=== PATIENT | male | born 1945 | race Caucasian/White ===

== ENCOUNTER 2019-11-20 16:09 | Inpatient (IN) | payer OTHER, MEDICARE, SELFPAY ==
[2019-11-20 16:17] VITALS: BP 154/99; PULSE 85; RESP 14; TEMP 36.2; O2SAT 95; BMI 35.9
--- NOTE | 2019-11-20 16:27 | XRR_ITS ---
PROCEDURE INFORMATION: Exam: XR Left Hand Exam date and time: 11/20/2019 4:28 PM Age: 74 years old Clinical indication: Pain; Finger(s) and hand; Left TECHNIQUE: Imaging protocol: XR Left hand. Views: 3 or more views. COMPARISON: No relevant prior studies available. FINDINGS: Bones/joints: Normal. Soft tissues: Normal. XR/XR hand LT min 3V* [id number] IMPRESSION: No acute findings.
--- NOTE | 2019-11-20 16:54 | PC.NURSE ---
Pt had Vanc at noon today. Informed Dr Montes. Gave report Not to give.
[2019-11-20 16:55] VITALS: BP 161/105; PULSE 77; RESP 20; O2SAT 97
[2019-11-20 17:02] LABS: Basophils % 0.5 %; Eosinophils # 0.1 10^3/uL (0.0-0.8); Hematocrit 42.3 % (42.0-52.0); Hemoglobin 13.9 g/dL (11.7-16.6); Lymphocytes # 1.3 10^3/uL (0.8-4.8); Lymphocytes % 14.7 %; Mean Corpuscular HGB Conc 32.9 g/dL (30.0-36.0); Mean Corpuscular Hemoglobin 27.9 pg (28.0-34.0); Mean Corpuscular Volume 84.8 fL (80-94); Mean Platelet Volume 10.3 fL (7.4-10.4); Monocytes % 11.4 %; Neutrophils # 6.18 10^3/uL (1.8-7.7); Neutrophils % 70.9 %; Nucleated Red Blood Cells % 0 %; Platelet Count 269 10^3/cmm (130-400); Red Blood Count 4.99 10^6/uL (4.1-5.3); Red Cell Distribution Width 13.6 % (12.1-15.1); White Blood Count 8.7 10^3/uL (4.0-10.0)
--- NOTE | 2019-11-20 17:08 | W.ED.GENADLT ---
HPI - General Adult General: Chief complaint: General Medical Stated complaint: infection in left hand Time Seen by Provider: 11/20/19 16:22 Source: patient Mode of arrival: ambulatory Limitations: no limitations History of Present Illness: HPI narrative: 74-year-old male who states he had cellulitis of his left index finger starting 4 days ago. He has been getting IV vancomycin at urgent care over the last 4 days. Patient states it is worsened and he went there today and got his infusion and his cellulitis is now to his forearm. Patient denies any fever he has slight pain. He is full range of motion of his finger. Associated symptoms: Deny chest pain, dyspnea, headache(s), nausea, rash or vomiting Review of Systems Const: Denies: fever(s), chills, body aches or change in appetite Eyes: Denies: blurry vision or eye discomfort ENMT: Denies: throat pain or dental pain Card: Denies: chest pain Resp: Denies: dyspnea GI: Denies: abdominal pain, nausea, vomiting or diarrhea : Denies: dysuria Musc: Denies: neck pain or back pain Skin/Breast: Denies: rash Neuro: Denies: headache(s) Psych: Denies: depression Robert/Lymph: Denies: easy bruising All/Imm: Denies: urticaria Physical Exam Const: COMMON NORMALS: no acute distress, patient oriented x3 and healthy appearing HENMT: COMMON NORMALS: normocephalic and atraumatic HEAD & SCALP: normocephalic and atraumatic Eye: COMMON NORMALS: Equal, round and reactive pupils present and EOMs intact bilaterally PUPIL: Yes Equal, round and reactive pupils present Neck/C-Spine: COMMON NORMALS: full ROM and supple Chest: COMMONS NORMALS: normal inspection of the chest and normal palpation of entire chest wall Resp: COMMON NORMALS: normal respiratory effort, No retractions, No use of accessory muscles and clear to auscultation bilaterally AUSCULTATION: clear to auscultation bilaterally Cardio: COMMON NORMALS: regular rate, regular rhythm and No murmurs present (Cardio) RATE: regular rate RHYTHM: regular rhythm GI: COMMON NORMALS: Normal to inspection, nondistended, normoactive bowel sounds present, Soft to palpation, non-tender and no masses PALPATION: Yes Soft to palpation Extremity: COMMON NORMALS: normal to inspection and full ROM NARRATIVE EXTREMITY EXAM: redness to left index finger going up forearm no tenderness erythema to the palmar aspect of finger Neuro: COMMON NORMALS: patient oriented x3, moves all extremities and no focal motor deficits Psych: COMMON NORMALS: mental status grossly normal, Normal thought process present and cooperative THOUGHT PROCESS: Normal thought process present Skin: COMMON NORMALS: no rashes or lesions noted and no wounds GENERAL SKIN EXAM: no rashes or lesions noted Course Vital Signs: Vital signs: Vital Signs Temperature 97.1 F L 11/20/19 16:17 Pulse Rate 77 11/20/19 16:55 Respiratory Rate 20 H 11/20/19 16:55 Blood Pressure 161/105 11/20/19 16:55 Pulse Oximetry 97 11/20/19 16:55 MDM - General Adult MDM Narrative: Medical decision making narrative: Patient presents with cellulitis to his left index finger that is now went to his forearm. Is worsening even on IV antibiotics. Patient's white count and temperature are normal here. I spoke to hospitalist Dr. Saucedo and will admit for IV antibiotics. Patient has no signs of palmar involvement or flexor tenosynovitis Lab Data: Labs: Lab Results 11/20/19 11/20/19 Range/Units 16:50 16:50 WBC 8.7 (4.0-10.0) 10^3/ uL RBC 4.99 (4.1-5.3) 10^6/u L Hgb 13.9 (11.7-16.6) g/dL Hct 42.3 (42.0-52.0) % MCV 84.8 (80-94) fL MCH 27.9 L (28.0-34.0) pg MCHC 32.9 (30.0-36.0) g/dL RDW 13.6 (12.1-15.1) % Plt Count 269 (130-400) 10^3/c mm MPV 10.3 (7.4-10.4) fL Neut % (Auto) 70.9 % Lymph % (Auto) 14.7 % [place] % (Auto) 11.4 % Eos % (Auto) 1.0 % Baso % (Auto) 0.5 % Neut # (Auto) 6.18 (1.8-7.7) 10^3/u L Lymph # (Auto) 1.3 (0.8-4.8) 10^3/u L [place] # (Auto) 1.0 H (0.2-0.9) 10^3/u L Eos # (Auto) 0.1 (0.0-0.8) 10^3/u L Baso # (Auto) 0.0 (0.0-0.1) 10^3/u L Nucleated RBC % (a uto) 0 % Nucleated RBCs # 0.0 /100WBC Sodium 137 (136-145) mmol/L Potassium 4.3 (3.5-5.1) mmol/L Chloride 101 (98-107) mmol/L Carbon Dioxide 23 (22-29) mmol/L Anion Gap 17.3 (5-19) BUN 12 (8-23) mg/dL Creatinine 0.9 (0.7-1.2) mg/dL GFR Calculation Not Reportable Glucose 112 (65-115) mg/dL Calcium 8.7 (8.5-10.5) mg/dL Total Bilirubin 0.6 (0.15-1.2) mg/dL AST 36 (0-40) U/L ALT 38 (0-41) U/L Alkaline Phosphata se 93 (40-130) IU/L Total Protein 7.3 (6.6-8.7) g/dL Albumin 4.0 (3.5-5.2) g/dL Globulin 3.3 (1.3-4.6) g/dL Imaging Data^: Other Xray: Radiologist's impression: [place] [address] XRay Report Signed Patient: Gregory Ramírez Sr Unit #: [id number] : 1945 Age/Sex: 74 / M ADM Date: 11/20/19 Loc: ER Room/Bed: Attending Dr: Ordering Provider/Ordering MD: Christian Montes MD Date of Service: 11/20/19 Procedure(s): XR hand LT min 3V* [id number] Accession Number(s): [id number] Report Number: [id number] PROCEDURE INFORMATION: Exam: XR Left Hand Exam date and time: 11/20/2019 4:28 PM Age: 74 years old Clinical indication: Pain; Finger(s) and hand; Left TECHNIQUE: Imaging protocol: XR Left hand. Views: 3 or more views. COMPARISON: No relevant prior studies available. FINDINGS: Bones/joints: Normal. Soft tissues: Normal. XR/XR hand LT min 3V* [id number] IMPRESSION: No acute findings. 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
[2019-11-20 17:20] LABS: Alanine Aminotransferase 38 U/L (0-41); Alkaline Phosphatase 93 IU/L (40-130); Anion Gap 17.3 (5-19); Aspartate Amino Transferase 36 U/L (0-40); Blood Urea Nitrogen 12 mg/dL (8-23); Calcium 8.7 mg/dL (8.5-10.5); Carbon Dioxide 23 mmol/L (22-29); Chloride 101 mmol/L (98-107); Globulin 3.3 g/dL (1.3-4.6); Glucose 112 mg/dL (65-115); Osmolality Calculated 281 mOsm/kg (285-295); Potassium 4.3 mmol/L (3.5-5.1); Sodium 137 mmol/L (136-145); Total Bilirubin 0.6 mg/dL (0.15-1.2); Total Protein 7.3 g/dL (6.6-8.7)
--- NOTE | 2019-11-20 18:44 | CTR_ITS ---
PROCEDURE INFORMATION: Exam: CT Left Upper Extremity With Contrast, Forearm Exam date and time: 11/20/2019 9:18 PM Age: 74 years old Clinical indication: Swelling; Arm, lower and fingers and hand and wrist; Left; Patient HX: Cellulitis L forearm - origin thorn index finger 10 days agp; Additional info: Worsening cellulitis TECHNIQUE: Imaging protocol: CT of the Left upper extremity with intravenous contrast was performed. Exam focused on the forearm. Radiation optimization: All CT scans at this facility use at least one of these dose optimization techniques: automated exposure control; mA and/or kV adjustment per patient size (includes targeted exams where dose is matched to clinical indication); or iterative reconstruction. Contrast material: OMNI 300; Contrast volume: 95 ml; Contrast route: INTRAVENOUS (IV); COMPARISON: No relevant prior studies available. RADIATION DOSE METRICS: Total DLP (mGy-cm): 936.54 FINDINGS: Bones/joints: Multi-articular primary osteoarthritic changes including joint space narrowing, subchondral cystic/sclerotic changes, and small marginal osteophyte formations. Soft tissues: There is edema and stranding in the subcutaneous soft tissues at the posterior and ulnar aspect of the elbow , forearm, and wrist. No discrete abscess formation is seen. CT/CT forearm LT w con [id number] IMPRESSION: Findings as stated above are consistent with soft tissue cellulitis at the posterior and ulnar aspects of the elbow, forearm, and wrist. No abscess formation is seen. Radiation Dose CTDIVOL = (mGy): DLP = 936.54 (mGy-cm)
--- NOTE | 2019-11-20 18:44 | CTR_ITS ---
PROCEDURE INFORMATION: Exam: CT Left Upper Extremity With Contrast, Hand Exam date and time: 11/20/2019 9:18 PM Age: 74 years old Clinical indication: Pain; Swelling; Fingers and hand; Left; Finger(s) and hand; Patient HX: Cellulitis L hand - origin thorn index finger 10 days agp; Additional info: Increasing cellulitis x 10 days TECHNIQUE: Imaging protocol: CT of the Left upper extremity with intravenous contrast was performed. Exam focused on the hand. Radiation optimization: All CT scans at this facility use at least one of these dose optimization techniques: automated exposure control; mA and/or kV adjustment per patient size (includes targeted exams where dose is matched to clinical indication); or iterative reconstruction. Contrast material: OMNI 300; Contrast volume: 95 ml; Contrast route: INTRAVENOUS (IV); COMPARISON: CR XR hand LT min 3V* [id number] 11/14/2019 5:21 PM RADIATION DOSE METRICS: Total DLP (mGy-cm): 237.49 FINDINGS: Bones/joints: Multi-articular primary osteoarthritic changes including joint space narrowing, subchondral cystic/sclerotic changes, and marginal osteophyte formations. Soft tissues: There is edema and stranding in the subcutaneous soft tissues at the posterior and ulnar aspects of the distal forearm and wrist. There is edema and stranding in the subcutaneous soft tissues surrounding the hand. No discrete abscess formation is seen. CT/CT hand LT w con [id number] IMPRESSION: Findings as stated above are consistent with soft tissue cellulitis. No discrete abscess formation is seen. Radiation Dose CTDIVOL = (mGy): DLP = 237.49 (mGy-cm)
--- NOTE | 2019-11-20 18:52 | PM.HP ---
Providers/Chief Complaint Admitting Physician: Debbie Saucedo MD Primary Care Provider: Barrett Rodriguez MD Chief Complaint: infection in left hand History of Present Illness Gregory Ramírez Sr is a 74 year old male without significant comorbidities p/w owrsening cellulitis of the left hand. States symptoms first started about 10 days ago when he injured the tip of his left index finger with a thorn. Soon after there was swelling, erythema and he was started on rx with po augmentin and po clindamycin for one week which did not resolve his symptoms. The swelling was not extending towards his forearm and he had a PICC line placed into the R arm by his PCP Dr. Rodriguez, who then prescribed him iv vancomycin via the urgent care. This did not resolve his symptoms either and he was referred to the ER for further management. Reportedly cx was drawn one week ago at the office, which was negative for any bacterial growth. It is not available for review at this time. There is no longer any discharge from this morning. X-rays were taken at the time of onset of symptoms and today which did not show any evidence of underlying osteomyelitis or retained foreign bodies. Denies any complaints of fever. Review of Systems General: Reports: 10 or more systems reviewed and unremarkable except in HPI and below Const: Denies: fever(s), chills or body aches Eyes: Denies: change in vision, blurry vision or photophobia ENMT: Reports: hoarseness; Denies: throat pain, enlarged tonsils, odynophagia or nasal congestion Card: Denies: chest pain, palpitations, irregular heart rhythm, edema, swelling of feet/ankles, lightheadedness, pre-syncope, dyspnea on exertion or orthopnea Resp: Denies: dyspnea, productive cough, non-productive cough, wheezing, stridor, pain on inspiration, change in phlegm color, hemoptysis or chest congestion GI: Denies: abdominal pain, nausea, vomiting, hematemesis, coffee ground emesis, dysphagia, heartburn, diarrhea, constipation, GI cramping, change in stool character, hematochezia or melena : Denies: flank pain, dysuria, urinary frequency, urinary urgency, urinary hesitancy or hematuria Musc: Denies: neck pain, back pain, extremity pain, joint swelling, joint warmth or deformity Neuro: Denies: headache(s), numbness in extremities, weakness in extremities, sensory changes, difficulty walking, frequent falls, dizziness, vertigo, behavioral changes, Slurred speech present or seizure-like activity Psych: Denies: anxiety, depression, suicidal ideation or homicidal ideation Endo: Denies: polyuria, polydipsia, tired all the time, cold intolerance or hot flashes Robert/Lymph: Denies: easy bruising or easy bleeding Medications/Allergies Home Medications Medication Instructions Recorded Confirmed Last Taken Type metoprolol succinate 50 mg PO DAILY 11/19/19 11/20/19 11/20/19 History aspirin [Aspir-81] 81 mg PO PRN 11/20/19 11/20/19 11/19/19 History brimonidine [Alphagan P] 1 drp OPHTHALMIC (EYE) BID 11/20/19 11/20/19 11/20/19 History latanoprost 1 drp OPHTHALMIC (EYE) BEDTIME 11/20/19 11/20/19 11/19/19 History vancomycin See Rx Instructions .ROUTE .COMPLEX 11/20/19 11/20/19 11/20/19 12:00 History Allergies Allergy/AdvReac Type Severity Reaction Status Date / Time No Known Allergies Allergy Verified 11/20/19 17:11 PFSH Acute PFSH: Medical History (Updated 11/20/19 @ 18:57 by Debbie Saucedo MD) HTN (hypertension) Surgical History (Updated 11/20/19 @ 18:57 by Debbie Saucedo MD) History of knee surgery Vitals/I&O/Wt Last Vital Signs Temp 97.1 F L 11/20/19 16:17 Pulse 77 11/20/19 16:55 Resp 20 H 11/20/19 16:55 BP 161/105 11/20/19 16:55 Pulse Ox 97 11/20/19 16:55 Weight last 48 hrs Weight 120.202 kg Physical Exam Narrative: EXAM NARRATIVE: GEN: Awake, alert and oriented, no acute distress CVS: S1S2 N RS: CTA B/L Abd: Soft, nt/nd , bs+ 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 No significant tenderness. The left index finger at the junction of nail and skin, noted some excoriation and overlying scarring, however no overt discharge is noted. Cellulitic changes are extending up into the forearm up to the level of midforearm at this present time. Data : 11/20/19 16:50 11/20/19 16:50 Micro: Microbiology 11/20/19 16:52 Blood Culture - Preliminary Blood SPECIMEN COLLECTED 11/20/19 16:50 Blood Culture - Preliminary Blood SPECIMEN COLLECTED A&P Assessment and plan (1) Cellulitis: Status: Acute Qualifiers: Laterality: left Site of cellulitis: extremity Site of cellulitis of extremity: finger Qualified Code(s): L03.012 - Cellulitis of left finger Additional A&P Information Admit to [facility]. Patient does have evidence of what appears to have started off as a paronychia and then infection of the finger quickly extending into the hand and then up into the forearm. He has been on treatment with outpatient antibiotics with oral Augmentin clindamycin for about 1 week and then most recently with IV vancomycin which is failed to relieve his symptoms. Changes seem to be progressive. For now we will admit him for inpatient IV antibiotics given the critical location of the infection in his hand. Start him on IV Zosyn, this will provide additional pseudomonal another gram-negative coverage over and above the oral regimen that he is received so far. Continue vancomycin for gram-positive coverage including MRSA. There is no history of animal bites or other animal exposure as such over this area. Less likely to be Bartonella. Given that initially symptoms started after a thorn prick and working in the garden possibility of fungal etiology cannot be excluded at this time. Possibilities also include atypical infection such as mycobacteria. Plan to start him on a broader spectrum of IV antibiotic coverage first, monitor for improvement prior to starting any empiric antifungals at this time. CT of the left upper extremity and hand to evaluate for extent of infection including the depth. If any pus pockets are seen, may potentially require drainage and we will be able to obtain some culture material as well. Check Duplex venous of the upper extremity to look for possibility of underlying DVT or septic thrombophlebitis. Obtain records of cultures taken at Dr. Rodriguez's office a week ago. gentle iv hydration with fluids prior to contrast study of the hand Full code Attestations Medical Necessity Statement*: worsening hand and forearm cellulitis, failed outpatient oral and iv abx therapy, needs iv treatment. 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
[2019-11-20 18:55] VITALS: BP 142/107; PULSE 74; RESP 18; TEMP 37; O2SAT 95
--- NOTE | 2019-11-20 19:04 | PC.PHAR ---
Vancomycin is dosed at 2000mg IVPB every 12 hours to produce a predicted trough level of 18.36 (population based pharmacokinetic analysis). A trough level has been ordered from the lab to be obtained before the fourth dose to confirm and adjust if needed. The Zosyn is dosed at 3.375gm IVPB every 8 hours on basis of creatinine clearance of 97.8, each dose to be infused over 4 hours per extended infusion protocol.
[2019-11-20 20:00] VITALS: BP 152/95; PULSE 71; RESP 20; TEMP 37.1; O2SAT 97
[2019-11-20] MEDS: sodium chloride 0.9% 1,000 ML 50 ML IV (20:08)
[2019-11-20] MEDS: iohexol 300 mg/mL 100 mL Btl IV (21:46)
[2019-11-20 22:24] LABS: Estmated Average Glucose 105; Hemoglobin A1C 5.3 % (4.0-6.0)
[2019-11-21] VITALS: BP 148/89; PULSE 67; RESP 18; TEMP 36.7; O2SAT 96
[2019-11-21] MEDS: piperacillin-tazobactam 3.375 GM in sodium chloride 0.9% (plus) 50 ML IV ×2 (03:07→09:04)
[2019-11-21 04:00] VITALS: BP 155/92; PULSE 73; RESP 18; TEMP 37.1; O2SAT 95
[2019-11-21 05:55] LABS: Basophils % 0.4 %; Eosinophils # 0.1 10^3/uL (0.0-0.8); Eosinophils % 1.3 %; Hemoglobin 13.7 g/dL (11.7-16.6); Lymphocytes # 0.9 10^3/uL (0.8-4.8); Lymphocytes % 10.7 %; Mean Corpuscular HGB Conc 32.6 g/dL (30.0-36.0); Mean Corpuscular Hemoglobin 28.4 pg (28.0-34.0); Mean Platelet Volume 11.3 fL (7.4-10.4); Monocytes # 0.9 10^3/uL (0.2-0.9); Monocytes % 10.9 %; Neutrophils # 6.02 10^3/uL (1.8-7.7); Neutrophils % 75.6 %; Nucleated Red Blood Cells % 0 %; Platelet Count 238 10^3/cmm (130-400); Red Blood Count 4.83 10^6/uL (4.1-5.3); Red Cell Distribution Width 13.8 % (12.1-15.1)
[2019-11-21 08:00] VITALS: BP 144/90; PULSE 92; RESP 18; TEMP 37; O2SAT 97
[2019-11-21] MEDS: metoprolol succinate ER (24 HR) 50 mg Tablet PO (09:04)
[2019-11-21 10:19] LABS: Alanine Aminotransferase 45 U/L (0-41); Alkaline Phosphatase 98 IU/L (40-130); Anion Gap 12.4 (5-19); Aspartate Amino Transferase 35 U/L (0-40); Blood Urea Nitrogen 11 mg/dL (8-23); Calcium 8.6 mg/dL (8.5-10.5); Carbon Dioxide 27 mmol/L (22-29); Chloride 103 mmol/L (98-107); Globulin 3.3 g/dL (1.3-4.6); Glucose 129 mg/dL (65-115); Osmolality Calculated 284 mOsm/kg (285-295); Potassium 4.4 mmol/L (3.5-5.1); Sodium 138 mmol/L (136-145); Total Bilirubin 0.8 mg/dL (0.15-1.2); Total Protein 7.3 g/dL (6.6-8.7)
--- NOTE | 2019-11-21 10:37 | PC.CHAP ---
Pastoral Care Encounter/Spiritual Assessment Type of Contact [] Declined allergist/immunologist visit [] Patient/Family/Request visit [] Outpatient visit [] Follow-up visit [] Physician referral [] Code/Alert [x] Routine visit [] Staff referral [] Actively dying [] Patient sleeping [] Family support [] [] Out of room [] Palliative care [] [] Receiving care in room [] Pre-surgical visit [] Trauma [] Long length of stay [] ICU visit [] Other: Relational/Emotional Strength [] Patient feels connected with others/family/visitors/staff [] Distress [] Loneliness/isolation [] Abandonment Spirituality of Patient [] Person of Marguerite [] Attends Judaism of their Marguerite [] Believes in Prayer [] Reads Bible or Gnosticist materials [] There are Spiritual issues to be addressed Set Up And Lay Out Inspector Interventions [x] Prayer [x] Active listening [x] Non-anxious presence [x] Spiritual/emotional support [] Crisis/trauma care [] Spiritual counseling [] Bereavement support [] Provided bereavement packet [] Provided Bible/devotional materials [] Provided toy/stuffed animal, coloring book to patient or family member [] Provided Communion [] Anointing/[place] [] Salvation [x] Completed spiritual assessment [] Other: Impact on Illness or Injury [] Angry [] Fearful [] Anxious [] Often cries [] Exhaustion [] Unable to work [] Unable to attend muslim [] Unable to walk/stand [] Unable to read [] Unable to drive [] Unable to eat/drink [] Unable to sleep [] Unable to be with family [] Patient intubated [] Other: Summary Patient states issues is being taken care of... feeling much better Time spent with patient 10 min
[2019-11-21 11:50] VITALS: BP 140/86; PULSE 89; RESP 18; TEMP 36.9; O2SAT 97
--- NOTE | 2019-11-21 12:36 | P.PN_ITS ---
Subjective Subjective: Interval history: He was really wanting to go home. He reports his hand is about the same. Still with swelling up to about mid left forearm. Reports that thing started with a thorn in his dorsal distal left index finger. Does not have significant pain in the extremity. No reported loss of sensation. No purulent drainage from index finger lesion. Vitals/I&O/Wt Last Vital Signs Temp 98.4 F 11/21/19 11:50 Pulse 89 11/21/19 11:50 Resp 18 11/21/19 11:50 BP 140/86 11/21/19 11:50 Pulse Ox 97 11/21/19 11:50 11/20/19 11/21/19 11/21/19 22:59 06:59 14:59 Intake Total 500 / 500 530 / 530 Output Total 800 / 800 Balance -300 / -300 530 / 530 Weight last 48 hrs Weight 120.202 kg Physical Exam Const: COMMON NORMALS: no acute distress and patient oriented x3 GENERAL A PPEARANCE: anxious HENMT: COMMON NORMALS: oropharynx normal Neck/C-Spine: COMMON NORMALS: no JVD Resp: COMMON NORMALS: normal respiratory effort and clear to auscultation bilaterally AUSCULTATION: clear to auscultation bilaterally Cardio: COMMON NORMALS: no JVD, regular rhythm, S1 normal heart sound present, S2 normal heart sound present and No murmurs present (Cardio) RHYTHM: regular rhythm HEART SOUNDS: S1 normal heart sound present and S2 normal heart sound present GI: COMMON NORMALS: Normal to inspection, nondistended, normoactive bowel sounds present, Soft to palpation and non-tender PALPATION: Yes Soft to palpation Extremity: COMMON NORMALS: no joint enlargement and no pedal edema OTHER: Left hand and forearm (about prison) swelling. Were swelling of the left index finger, especially dorsal aspect, with about 2 cm raised/swollen area at the distal index finger, just proximal to nail bed, with a small area of excoriation, without any purulent discharge. No foreign body can be visualized. Neuro: COMMON NORMALS: patient oriented x3 and moves all extremities Skin: COMMON NORMALS: no rashes or lesions noted GENERAL SKIN EXAM: no rashes or lesions noted Data : 11/21/19 04:47 11/21/19 09:48 Micro: Microbiology 11/20/19 16:52 Blood Culture - Preliminary Blood SPECIMEN COLLECTED 11/20/19 16:50 Blood Culture - Preliminary Blood SPECIMEN COLLECTED A&P Assessment and plan (1) Cellulitis: There is no significant discoloration/erythema of the left arm. There is mild pinkish discoloration, there is some persistent swelling up to about mid forearm. He does say that this is somewhat better. Discussed with him concerned that there has been very slow improvement despite even IV antibiotic administration as an outpatient. He is agreeable to stay for additional reevaluation. We discussed concerns if he does need close follow-up at this time and is not yet ready for discharge. Discussed with him additional monitoring with current antibiotics with vancomycin and Zosyn, and if lack of sufficient improvement, may need to consider additional conditions that may lead to his symptoms. Venous duplex to exclude VTE is also still pending. Blood culture so far unrevealing here. Reported outpatient culture was without growth. CT hand and forearm with soft tissue cellulitis, without abscess or collection. There is no purulent drainage from his index finger which is somewhat more swollen than other digits, with excoriation just proximal to nailbed origin. He is wanting to go home but understands the need for broader antibiotic treatment at this time and close reevaluation due to risks of progression of infection, possible deeper tissue infection, other complications that may lead to risk of disability or . He has received a week of treatment with Augmentin, clindamycin. Currently has been receiving IV infusions with vancomycin via right arm PICC line. Says has had 3 more infusions remaining. Status: Acute Qualifiers: Laterality: left Site of cellulitis: extremity Site of cellulitis of extremity: finger Qualified Code(s): L03.012 - Cellulitis of left finger Attestations Medical Necessity Statement*: Continue admission for assessment management of persistent cellulitis of soft tissue of the left hand despite outpatient treatment, including IV vancomycin. 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
[2019-11-21 12:48] LABS: Vancomycin Trough 11.3 ug/mL (10-15)
[2019-11-21 16:00] VITALS: BP 159/81; PULSE 87; RESP 18; TEMP 37.8; O2SAT 96
[2019-11-21] MEDS: acetaminophen 325 mg Tablet 650 MG PO (16:06)
--- NOTE | 2019-11-21 17:35 | PC.NURSE ---
Ribbon Winder rounded on pt and due to pt only having 100ml output per Dr request typewriter assembly and parts inspector bladder scanned pt only had 50ml typewriter assembly and parts inspector explained to pt that its important that we monitor pt output closely due to some medication that pt was taking pt stated that he felt like he could urinate so typewriter assembly and parts inspector left room and then VISION SPECIALIST came and told typewriter assembly and parts inspector that pt was leaving AMA typewriter assembly and parts inspector spoke with pt and he stated I cant stay here another minute I am going to go home and drink lots of water and get into see my family tomorrow. Ribbon Winder explained the importance of pt staying in the hospital due to the not feeling its safe letting him go home and the importance of watching for signs and symptoms of sepsis and compartment syndrome.
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
--- NOTE | 2019-11-21 18:44 | USCV_ITS ---
Gregory Ramírez Sr Age: 74 Gender: M : 1945 Exam Date: 11/21/2019 06:55 Ordering Phys: Debbie Saucedo MD Technologist: Lizabeth Whittington Exam Location: [facility] [place]_ Indication: SWELLING HISTORY: Upper extremity swelling. PROCEDURES: Venous duplex imaging was performed in only the left upper extremity. The following venous structures were evaluated: internal jugular vein, subclavian vein, axillary vein, and brachial veins. In addition, the basilic vein, cephalic vein, radial vein, and ulnar vein. Serial compression, augmentation maneuvers, and spectral Doppler flow evaluation were performed. FINDINGS: Normal 2-D, color Doppler and phasicity noted in the left upper extremity venous system extending from the left internal jugular vein through the main forearm. No thrombosis or occlusion noted. CONCLUSIONS No evidence of thrombus of the left upper extremity veins. Tang Jones MD (Electronically Signed) Final Date: 21 November 2019 12:59 S
== END 2019-11-21 19:00 | disposition left against medical advice (07) | DRG 603 ==
LOC: ER 18:19 → MEDSURG 18:27
PROVIDERS: Emergency Medicine; Admitting Provider Student in an Organized Health Care Education/Training Program; PCP Family Medicine; Visit Provider Internal Medicine
DX: L03.012 Cellulitis of left finger (principal); L03.114 Cellulitis of left upper limb; Z53.29 Procedure and treatment not carried out because of patient's decision for other reasons; I10 Essential (primary) hypertension; Z79.82 Long term (current) use of aspirin
CPT/HCPCS: 12345; 36415; 36592; 73130; 73201; 80053; 80202; 83036; 85025; 87040; 93971; 99281; J2543; J3370; J7030; J7040; Q9967

== ENCOUNTER 2019-11-24 11:35 | Outpatient (RCR) | payer OTHER, SELFPAY ==
--- NOTE | 2019-11-18 12:41 | XR_ITS ---
WS: [id number] PORTABLE CHEST HISTORY: PICC LINE COMPARISON: 04/28/2018 Interval placement of a RIGHT PICC line with tip in the distal SVC. Increased soft tissue in the RIGHT paratracheal region similar to the prior study. Otherwise lungs ar e clear. No pleural effusion or pneumothorax. Cardiac size: Normal. Mediastinum/Aorta: Normal mediastinum. No osseous abnormality seen. XR/XR chest 1V portable [id number] IMPRESSION: Satisfactory position RIGHT PICC line.
[2019-11-18] MEDS: vancomycin 1,000 MG in sodium chloride 0.9% 250 ML 250 MG IV (13:04)
[2019-11-19] MEDS: vancomycin 1,000 MG in sodium chloride 0.9% 250 ML 250 MG IV (12:05)
[2019-11-19 12:07] VITALS: BMI 35.9
[2019-11-19 12:16] VITALS: BP 159/106; PULSE 96; RESP 18; TEMP 36.1; O2SAT 98
[2019-11-20 11:50] VITALS: BP 155/100; PULSE 89; RESP 16; TEMP 36.3; O2SAT 97
[2019-11-20] MEDS: vancomycin 1,000 MG in sodium chloride 0.9% 250 ML 250 MG IV (12:00)
[2019-11-22 12:49] VITALS: BP 169/107; PULSE 85; RESP 18; TEMP 36.4; O2SAT 99
[2019-11-22] MEDS: vancomycin 1,000 MG in sodium chloride 0.9% 250 ML 250 MG IV (13:04)
[2019-11-23] MEDS: vancomycin 1,000 MG in sodium chloride 0.9% 250 ML 250 MG IV (12:00)
[2019-11-23 12:15] VITALS: BP 174/98; PULSE 79; RESP 20; TEMP 36.4; O2SAT 97
[2019-11-24 11:56] VITALS: BP 200/100; PULSE 76; RESP 18; TEMP 36.3; O2SAT 98
[2019-11-24] MEDS: vancomycin 1,000 MG in sodium chloride 0.9% 250 ML 250 MG IV (11:58)
== END 2019-12-12 23:59 | disposition home or self-care (01) ==
LOC: OPS 11:35
PROVIDERS: PCP Family Medicine; Visit Provider Family Medicine
DX: L03.012 Cellulitis of left finger (principal); Z79.2 Long term (current) use of antibiotics
CPT/HCPCS: 36569; 71045; 96365; 96366; J3370; J7050

== ENCOUNTER 2020-01-26 09:24 | Outpatient (CLI) | payer OTHER, SELFPAY | END 2020-01-26 09:25 | disposition home or self-care (01) | LOC: WOUND 09:25 | PROVIDERS: PCP Family Medicine; Visit Provider Nurse Practitioner Family | DX: L98.9 Disorder of the skin and subcutaneous tissue, unspecified (principal) | CPT/HCPCS: 99212 ==

== ENCOUNTER 2020-01-26 10:30 | Outpatient (CLI) | payer OTHER, SELFPAY ==
--- NOTE | 2020-01-26 10:42 | XR_ITS ---
WS: [id number] Left hand, 2 views, 01/26/2020 Clinical Data: TRAUMA L POINTER FINGER/REDNESS Comparison: Left hand, 11/20/2019. Findings: No fractures or dislocations are seen. The soft tissues are unremarkable. The joint spaces are normal No bone destruction or erosion is seen. There is a slight flexion deformity of the left fifth finger at the PIP joint. XR/XR hand LT 2V [id number] Impression: Negative for fracture, dislocation or bone erosion or destruction.
[2020-01-26 11:11] LABS: Basophils % 0.4 %; Eosinophils # 0.1 10^3/uL (0.0-0.8); Hematocrit 44.6 % (42.0-52.0); Hemoglobin 14.3 g/dL (11.7-16.6); Lymphocytes # 1.1 10^3/uL (0.8-4.8); Lymphocytes % 14.6 %; Mean Corpuscular HGB Conc 32.1 g/dL (30.0-36.0); Mean Corpuscular Hemoglobin 28.2 pg (28.0-34.0); Mean Platelet Volume 10.9 fL (7.4-10.4); Monocytes # 0.6 10^3/uL (0.2-0.9); Monocytes % 7.7 %; Neutrophils # 5.86 10^3/uL (1.8-7.7); Nucleated Red Blood Cells % 0 %; Platelet Count 262 10^3/cmm (130-400); Red Blood Count 5.07 10^6/uL (4.1-5.3); Red Cell Distribution Width 15.8 % (12.1-15.1); White Blood Count 7.8 10^3/uL (4.0-10.0)
[2020-01-26 11:55] LABS: C Reactive Protein 2.8 mg/L (0.0-4.9)
== END 2020-01-26 10:31 | disposition home or self-care (01) ==
LOC: RAD 10:37
PROVIDERS: PCP Family Medicine; Visit Provider Nurse Practitioner Family
DX: L53.9 Erythematous condition, unspecified (principal); S69.92XA Unspecified injury of left wrist, hand and finger(s), initial encounter; X58.XXXA Exposure to other specified factors, initial encounter
CPT/HCPCS: 36415; 73120; 85025; 86140

== ENCOUNTER 2020-01-31 11:41 | Outpatient (RCR) | payer OTHER, SELFPAY | END 2020-02-11 23:59 | disposition home or self-care (01) | LOC: SOT 11:41 | PROVIDERS: PCP Family Medicine; Referring Provider Thoracic Surgery (Cardiothoracic Vascular Surgery); Visit Provider Thoracic Surgery (Cardiothoracic Vascular Surgery) | DX: Z51.89 Encounter for other specified aftercare (principal) | CPT/HCPCS: 97110; 97165 ==

== ENCOUNTER 2020-02-12 06:00 | Outpatient (RCR) | payer OTHER, SELFPAY | END 2020-02-20 23:00 | disposition home or self-care (01) | LOC: SOT 06:00 | PROVIDERS: PCP Family Medicine; Referring Provider Thoracic Surgery (Cardiothoracic Vascular Surgery); Visit Provider Thoracic Surgery (Cardiothoracic Vascular Surgery) | DX: Z51.89 Encounter for other specified aftercare (principal) | CPT/HCPCS: 97110 ==

== ENCOUNTER 2020-02-20 13:26 | Outpatient (CLI) | payer OTHER, SELFPAY | END 2020-02-20 13:27 | disposition home or self-care (01) | LOC: WOUND 13:27 | PROVIDERS: PCP Family Medicine; Visit Provider Thoracic Surgery (Cardiothoracic Vascular Surgery) | DX: Z09 Encounter for follow-up examination after completed treatment for conditions other than malignant neoplasm (principal) | CPT/HCPCS: 99211 ==

== ENCOUNTER 2020-11-10 08:50 | Emergency (ER) | payer OTHER, SELFPAY ==
[2020-11-10 09:03] VITALS: BP 150/105; PULSE 95; RESP 18; TEMP 36.9; O2SAT 97; BMI 33.9
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
[2020-11-10 10:00] VITALS: RESP 18; TEMP 36.9; O2SAT 97
== END 2020-11-10 10:01 | disposition home or self-care (01) ==
PROVIDERS: Emergency Provider Physician Assistant; PCP Family Medicine
DX: T25.522A Corrosion of first degree of left foot, initial encounter (principal); I10 Essential (primary) hypertension
CPT/HCPCS: 99282

== ENCOUNTER → 2022-01-09 10:14 | Outpatient (BNVA) | payer OTHER, SELFPAY | PROVIDERS: PCP Family Medicine; Visit Provider Family Medicine | DX: Z00.00 Encounter for general adult medical examination without abnormal findings (principal); M10.9 Gout, unspecified; Z13.6 Encounter for screening for cardiovascular disorders | CPT/HCPCS: 80053; 80061; 84550; 85025 ==

== ENCOUNTER → 2022-08-29 09:49 | Outpatient (BNVA) | payer OTHER, SELFPAY | PROVIDERS: PCP Clinical Nurse Specialist Adult Health; Visit Provider Family Medicine | DX: M19.90 Unspecified osteoarthritis, unspecified site (principal); M10.9 Gout, unspecified; L03.90 Cellulitis, unspecified | CPT/HCPCS: 84550; 85025; 85651; 86141 ==

== ENCOUNTER → 2022-09-04 08:32 | Outpatient (BNVA) | payer OTHER, SELFPAY | PROVIDERS: PCP Clinical Nurse Specialist Adult Health; Visit Provider Family Medicine | DX: M19.90 Unspecified osteoarthritis, unspecified site (principal); M10.9 Gout, unspecified | CPT/HCPCS: 81000; 84550 ==

== ENCOUNTER → 2022-11-25 08:24 | Outpatient (BNVA) | payer OTHER, SELFPAY | PROVIDERS: PCP Family Medicine; Visit Provider Nurse Practitioner Family | DX: R05.8 Other specified cough (principal) | CPT/HCPCS: 71046 ==

== ENCOUNTER → 2022-11-28 10:15 | Outpatient (BNVA) | payer OTHER, SELFPAY | PROVIDERS: PCP Family Medicine; Visit Provider Family Medicine | DX: M19.90 Unspecified osteoarthritis, unspecified site (principal) | CPT/HCPCS: 84550 ==

== ENCOUNTER 2023-01-01 09:02 | Outpatient (CLI) | payer OTHER, SELFPAY ==
--- NOTE | 2023-01-01 09:15 | CT_ITS ---
WS: [id number] CT chest wo con [id number] HISTORY: CHRONIC COUGH TECHNIQUE: Axial imaging performed through the thorax. Coronal and sagittal reformats are submitted. All CT scans at [facility] use at least one of these dose optimization techniques: automated exposure control; mA and/or kV adjustment per patient size (includes targeted exams where dose is mat ched to clinical indication); or iterative reconstruction. CONTRAST: None DLP: 678.34 mGy.cm COMPARISON: 08/22/2013, 10/07/2017 Lungs and central airway: No mass or pulmonary nodule. No pneumonia. Pleura: Normal. No pleural effusion. Heart and pericardium: Heart is top normal size. Mild scattered coronary artery calcifications. No pe ricardial effusion. Mediastinum and esdras: There is a large mass with central calcification in the anterior RIGHT upper me diastinum. Mass is contiguous with the thyroid with central very coarse calcification. Mass extends o juan c a length of 6.2 cm, transversely by 6.1 in anterior posterior 3.5 cm. Very similar changes have b een noted since 2013. There is mass effect upon the RIGHT trachea and slight midline shift to the LEF T although no compromise of the airway. Small mediastinal and hilar lymph nodes. Vessels: Minimal atherosclerosis aorta. Chest wall and lower neck: See mediastinum and hilum section. Upper abdomen: Normal. Osseous structures: Mild increase in thoracic kyphosis. Moderate spondylosis. IMPRESSION: 1. No pulmonary mass or pneumonia. 2. 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 Mass is contiguous with the RIGHT thyroid. 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 There is mass effect and deviation upon the trachea but no compromis e of the airway. 3. No adenopathy.
== END 2023-01-01 09:03 | disposition home or self-care (01) ==
PROVIDERS: PCP Family Medicine; Visit Provider Family Medicine
DX: R05.3 Chronic cough (principal); J98.59 Other diseases of mediastinum, not elsewhere classified; E07.9 Disorder of thyroid, unspecified
CPT/HCPCS: 71250

== ENCOUNTER 2023-01-17 06:35 | Emergency (ER) | payer OTHER, SELFPAY ==
[2023-01-17 06:41] VITALS: BP 166/107; PULSE 78; RESP 20; TEMP 36.5; O2SAT 99; BMI 35.2
[2023-01-17 06:46] VITALS: BP 166/107; PULSE 82; RESP 20; O2SAT 99
--- NOTE | 2023-01-17 06:46 | ED_ITS ---
HPI - Ear Problem General: Chief complaint: Ear Stated complaint: ear bleeding, congestion Time Seen by Provider: 01/17/23 06:46 Source: patient Mode of arrival: ambulatory History of Present Illness: 77-year-old male comes in complaining of bloody drainage from the left ear. He has been manipulating the ear canal with cotton swabs is noted blood on the cotton swab when he manipulates the ear canal. He has not had any hearing changes no tinnitus MD Complaint: ear pain Location: left ear Duration: intermittent Severity: mild Associated symptoms: Denies ear or mastoid pain, external ear pain, fever(s), headache(s), hearing loss, neck pain, rhinorrhea or tinnitus Treatment prior to arrival: attempt at ear wax removal Review of Systems Const: Denies: fever(s) or chills ENMT: Reports: ear discharge; Denies: ear or mastoid pain or tinnitus Resp: Denies: dyspnea, productive cough or non-productive cough GI: Denies: abdominal pain : Denies: flank pain Musc: Denies: neck pain Neuro: Denies: headache(s) PFSH ED PFSH: Medical History Gout HTN (hypertension) Laceration of foot without foreign body Lower extremity edema Tick bite Surgical History History of knee surgery Social History Smoking and tobacco status: current every day smoker Alcohol intake: current Alcohol intake frequency: few times a week Substance/Drug Use: never Marital status: / Number of children: 2 Number of grandchildren: 7 Current occupational status: employed Physical Exam Const: COMMON NORMALS: no acute distress GENERAL APPEARANCE: cooperative and comfortable ORIENTATION/CONSCIOUSNESS: Yes awake, Yes oriented to person, Yes oriented to place and Yes oriented to time HENMT: COMMON NORMALS: normocephalic, atraumatic and hearing grossly normal bilaterally HEAD & SCALP: normocephalic and atraumatic OTHER: Mild excoriation of the posterior wall of the left external auditory canal with no purulent drainage no swelling Resp: COMMON NORMALS: normal respiratory effort, No retractions, No use of accessory muscles and clear to auscultation bilaterally AUSCULTATION: clear to auscultation bilaterally Cardio: COMMON NORMALS: regular rate, regular rhythm and No murmurs present (C ardio) RATE: regular rate RHYTHM: regular rhythm Extremity: COMMON NORMALS: normal to inspection, capillary refill normal, no clubbing, cyanosis or edema, no calf tenderness and no pedal edema Neuro: SENSORIUM/ORIENTATION: Yes oriented to person, Yes oriented to place and Yes oriented to time Skin: COMMON NORMALS: no rashes or lesions noted GENERAL SKIN EXAM: no rashes or lesions noted Course Vital Signs: Vital signs: Vital Signs Temperature 97.7 F 01/17/23 06:41 Pulse Rate 82 01/17/23 06:46 Respiratory Rate 20 H 01/17/23 06:46 Blood Pressure 166/107 01/17/23 06:46 Pulse Oximetry 99 01/17/23 06:46 Oxygen Delivery Me thod Room Air 01/17/23 06:46 MDM - Ear Medical Decision Making Mild irritation secondary to manipulation with Q-tip. Cortisporin eardrops 3 to 4 days follow-up as needed Medical Records I reviewed the patient's medical records. No radiology studies performed this visit Discharge Plan Discharge Patient Disposition: Home Clinical Impression: Irritation of external auditory canal Condition: Stable Prescriptions: New Cortisporin-TC 3.3-3-10-0.5 mg/mL drops,suspension 4 drp otic (ear) QID 5 Days Qty: 10 0RF No Action celecoxib [Celebrex] 50 mg capsule 50 mg PO DAILY prednisone 10 mg tablet See Rx Instructions PO DAILY Qty: 21 0RF Rx Instructions: 2 po qday x 7 days, then 1 po qday x 4 days then stop. losartan 50 mg tablet 50 mg PO DAILY triamcinolone acetonide 0.5 % cream 1 applic topical DAILY Qty: 15 3RF Rx Instructions: apply for itching skin up to two weeks latanoprost 0.005 % drops 1 drp ophthalmic (eye) BEDTIME aspirin [Aspir-81] 81 mg Tablet,Delayed Release (Dr/Ec) 81 mg PO PRN PRN (Reason: headache) Alphagan P 0.1 % drops 1 drp ophthalmic (eye) DAILY Rx Instructions: pt states he only uses in the am in both eyes Discharge Orders: Discharge ED (Routine); Ordered 01/17/23 Ordered By: Kenny Canseco Referrals: Barrett Rodriguez MD [Primary Care Provider] - Discharge Diet: Usual diet Discharge Activity: Resume usual activity Patient Instructions: Opioid Safety, Pain Management Activity Restrictions/Additional Instructions: You were seen today for complaint of bleeding from the left ear canal. There is some irritation likely from the use of the cotton swabs. Would avoid cotton swabs in the ear canal use the drops 4 drops 4 times daily for 5 days if you are still having symptoms at the end of that time follow-up with your primary care doctor to reevaluate. Coding Level of Care Code ED Medical Anthropology Director for Tracey [facility]
== END 2023-01-17 07:05 | disposition home or self-care (01) ==
PROVIDERS: Emergency Provider Family Medicine; PCP Family Medicine
DX: H92.02 Otalgia, left ear (principal); I10 Essential (primary) hypertension; F17.210 Nicotine dependence, cigarettes, uncomplicated
CPT/HCPCS: 99283

== ENCOUNTER 2023-02-13 11:18 | Outpatient (CLI) | payer OTHER, SELFPAY ==
--- NOTE | 2023-02-13 | ECG_ITS ---
[facility] Test Date: 2023-02-13 Pat Name: Gregory Ramírez Sr Department: Room: Gender: Male Development Writer: Lisandro Ordaz : 1945 Requested By: Elvis Guzman Order Number: [id number] Alaniz MD: Chuckie Espinosa M.D. Interpretive Statements NAME OF STUDY: TREADMILL STRESS TEST INDICATION: [Shortness of Breath, ] EXERCISE DATA: The patient was exercised by Sim protocol. Baseline heart rate was 96 beats per minute. Baseline blood pressure was 153/105 millimeters of mercury. Target heart rate was 122 beats per minute. Maximum heart rate achieved was 165, which was 135% of the target heart rate. Maximum blood pressure was 200/98 millimeters of mercury. Total exercise time was 6 minutes 28 seconds. Maximum METs achieved was 7.6. The reason for ending the test was maximal effort achieved. The patient complained of shortness of breath during the stress test, which then resolved at the end of the test. ELECTROCARDIOGRAM: BASELINE: Showed sinus rhythm, normal axis, no significant ST-T changes at the baseline noted. [] EXERCISE: At the peak exercise level, [] No significant ST-T changes suggestive of ischemia noted. [] RECOVERY: During the recovery period, heart rate dropped appropriately. No significant ST-T changes in the recovery suggestive of ischemia noted. [] CONCLUSION: 1. Exercise capacity is fair. 2. Heart rate response was appropriate 3. Blood pressure response was appropriate. 4. Symptoms not suggestive of ischemia. 5. Exercise stress test is not indicative of ischemia. Electronically Signed On 02-14-2023 21:02:35 CDT by Chuckie Espinosa M.D. [id number]
[2023-02-13 12:05] VITALS: BMI 35.2
[2023-02-13 12:45] VITALS: BP 142/108; PULSE 105
== END 2023-02-13 11:19 | disposition home or self-care (01) ==
LOC: CDL 11:19
PROVIDERS: PCP Family Medicine; Visit Provider Nurse Practitioner Family
DX: R06.02 Shortness of breath (principal)
CPT/HCPCS: 93017

== ENCOUNTER → 2023-04-16 08:48 | Outpatient (BNVA) | payer OTHER, SELFPAY | PROVIDERS: PCP Family Medicine; Visit Provider Family Medicine | DX: R06.02 Shortness of breath (principal); M10.9 Gout, unspecified; M19.90 Unspecified osteoarthritis, unspecified site; Z13.6 Encounter for screening for cardiovascular disorders | CPT/HCPCS: 80053; 80061; 84550; 85025 ==

== ENCOUNTER → 2023-05-06 15:15 | Outpatient (BNVA) | payer OTHER, SELFPAY | PROVIDERS: PCP Family Medicine; Referring Provider Family Medicine; Visit Provider Internal Medicine Pulmonary Disease | DX: J82.83 Eosinophilic asthma (principal); E07.9 Disorder of thyroid, unspecified | CPT/HCPCS: 82785; 86003 ==

== ENCOUNTER → 2023-06-02 14:16 | Outpatient (BNVA) | payer OTHER, SELFPAY | PROVIDERS: PCP Family Medicine; Visit Provider Family Medicine | DX: R35.0 Frequency of micturition (principal) | CPT/HCPCS: 81000 ==

== ENCOUNTER 2023-08-04 10:54 | Outpatient (CLI) | payer OTHER, SELFPAY ==
[2023-08-04 11:18] VITALS: PULSE 96; RESP 18; O2SAT 96
[2023-08-04] MEDS: albuterol 2.5 mg/3 mL Neb INHALATION (11:18)
[2023-08-04 11:22] VITALS: PULSE 98
== END 2023-08-04 10:55 | disposition home or self-care (01) ==
LOC: RT 10:54
PROVIDERS: PCP Family Medicine; Visit Provider Family Medicine
DX: J44.9 Chronic obstructive pulmonary disease, unspecified (principal)
CPT/HCPCS: 94060; 94726; 94729; J7613

== ENCOUNTER 2024-01-09 13:43 | Emergency (ER) | payer MEDICARE, SELFPAY ==
[2024-01-09] VITALS (8 sets, daily range): BP systolic 115–150; BP diastolic 84–99; PULSE 93–108; RESP 18; TEMP 36.7; O2SAT 97–100; BMI 33.9
--- NOTE | 2024-01-09 14:20 | XRR_ITS ---
PROCEDURE INFORMATION: Exam: XR Right Tibia and Fibula Exam date and time: 01/09/2024 2:59 PM Age: 78 years old Clinical indication: Injury or trauma; Other: spinner iron fell on him; Blunt trauma; Lower leg; Right TECHNIQUE: Imaging protocol: Radiologic exam of the right tibia and fibula. Views: 2 views. COMPARISON: No relevant prior studies available. FINDINGS: Bones/joints: No acute fracture. No dislocation. Normal bone mineralization. Mild degenerative changes at the right knee. Soft tissues: Soft tissue swelling at the medial/posterior right lower leg. No radiopaque foreign body. Vasculature: Few small phleboliths in the right lower leg. XR/XR tibia fibula RT 2V 02500 IMPRESSION: 1. No acute fracture of the right tibia/fibula. Followup radiographs recommended in 7-14 days if clinical concern for fracture persists. 2. Soft tissue swelling at the medial/posterior right lower leg. 3. Incidental/nonacute findings are listed in the report.
--- NOTE | 2024-01-09 14:20 | CTR_ITS ---
PROCEDURE INFORMATION: Exam: CT Chest With Contrast; Diagnostic Exam date and time: 01/09/2024 2:49 PM Age: 78 years old Clinical indication: Injury or trauma; Other: Mower accident; Generalized; Blunt trauma (contusions or hematomas) TECHNIQUE: Imaging protocol: Diagnostic computed tomography of the chest with contrast. Sagittal and coronal reformatted images were created and reviewed. Radiation optimization: All CT scans at this facility use at least one of these dose optimization techniques: automated exposure control; mA and/or kV adjustment per patient size (includes targeted exams where dose is matched to clinical indication); or iterative reconstruction. Contrast material: OMNIPAQUE 350; Contrast volume: 100 ml; Contrast route: INTRAVENOUS (IV); COMPARISON: CT chest [facility] [id number] 01/01/2023 9:21 AM RADIATION DOSE METRICS: Total DLP (mGy-cm): 1472.48 FINDINGS: Thyroid: Large right thyroid lobe with substernal extension and leftward deviation of the trachea extensive amorphous calcification in the right thyroid lobe, findings are stable. Trachea: Tracheobronchial structures are patent. Lungs: Lungs are clear bilaterally. No pulmonary parenchymal nodules or masses. Pleural spaces: No pneumothorax. No pleural effusion. Heart: Stable mild enlargement of the heart. Coronary arteries: Stable mild atherosclerotic calcification in the coronary arteries. Esophagus: The esophagus is unremarkable. Mediastinal space: No mediastinal hematoma. No pneumomediastinum. Lymph nodes: No lymphadenopathy. Vasculature: Stable mild atherosclerotic changes in the visualized arteries. No evidence for aortic aneurysm or aortic dissection. Pulmonary arteries are unremarkable. Pulmonary veins are unremarkable. Bones/joints: Stable degenerative changes in the spine and shoulders. Stable calcification of the anterior longitudinal ligament at T7 through T11, suggesting diffuse idiopathic skeletal hyperostosis (DISH). There is an acute fracture through the right anterolateral calcified anterior longitudinal ligament at the T7/8 level. It is uncertain whether the fracture extends into the T8 vertebral body (series 7, image 18 and series 8, image 37). Findings are concerning for an unstable fracture. Soft tissues: The extrathoracic soft tissues are unremarkable. PROCEDURE INFORMATION: Exam: CT Abdomen And Pelvis With Contrast Exam date and time: 01/09/2024 2:49 PM Age: 78 years old Clinical indication: Injury or trauma; Other: Mower accident; Generalized; Blunt trauma (contusions or hematomas) TECHNIQUE: Imaging protocol: Computed tomography of the abdomen and pelvis with contrast. Sagittal and coronal reformatted images were created and reviewed. Radiation optimization: All CT scans at this facility use at least one of these dose optimization techniques: automated exposure control; mA and/or kV adjustment per patient size (includes targeted exams where dose is matched to clinical indication); or iterative reconstruction. Contrast material: OMNIPAQUE 350; Contrast volume: 100 ml; Contrast route: INTRAVENOUS (IV); COMPARISON: CT abdomen pelvis w con* [id number] 04/28/2018 4:09 PM RADIATION DOSE METRICS: Total DLP (mGy-cm): 1472.48 FINDINGS: Liver: The liver is unremarkable. Gallbladder and biliary ducts: The gallbladder is unremarkable. No biliary ductal dilatation. Pancreas: The pancreas is unremarkable. No pancreatic ductal dilatation. Spleen: The spleen is unremarkable. Adrenal glands: The right and left adrenal glands are unremarkable. Kidneys and ureters: The right and left kidneys are unremarkable. The right and left ureters are unremarkable. Stomach and bowel: Numerous diverticula in the sigmoid colon, findings are stable. No evidence for diverticulitis. No acute abnormality in the small bowel. No acute abnormality in the stomach. Appendix: Appendix not definitely visualized. No inflammatory changes in the pericecal region however. Intraperitoneal space: No free intraperitoneal air. No ascites. No loculated fluid collections to suggest an abscess. Vasculature: Stable mild atherosclerotic calcifications in the visualized arteries. No evidence for aortic aneurysm or aortic dissection. Hepatic veins, portal veins, splenic vein, and SMV are patent. No extravasation of contrast from the abdominopelvic vessels. Lymph nodes: No lymphadenopathy. Urinary bladder: The bladder is unremarkable for the degree of distension. Reproductive: Stable nonspecific parenchymal calcifications in the prostate gland. Bones/joints: Degenerative changes in the spine, sacroiliac joints, and hips. Bilateral pars defects at L4-L5 with grade 1 anterolisthesis of L4 on L5. Osseous findings are stable. Soft tissues: 7.2 x 2.1 x 9.2 cm hematoma in the posterior midline subcutaneous tissues at the L1 through L3 levels with surrounding contusion. CT/CT chest abdpel w/*[id number] IMPRESSION: 1. Stable calcification of the anterior longitudinal ligament at T7 through T11, suggesting diffuse idiopathic skeletal hyperostosis (DISH). There is an acute fracture through the right anterolateral calcified anterior longitudinal ligament at the T7/8 level. It is uncertain whether the fracture extends into the T8 vertebral body (series 7, image 18 and series 8, image 37). Findings are concerning for an unstable fracture. 2. Large right thyroid lobe with substernal extension and leftward deviation of the trachea extensive amorphous calcification in the right thyroid lobe, findings are stable. IMPRESSION: 1. 7.2 x 2.1 x 9.2 cm hematoma in the posterior midline subcutaneous tissues at the L1 through L3 levels with surrounding contusion. No evidence for active bleeding. 2. Stable sigmoid diverticulosis. No evidence for diverticulitis. 3. Incidental/nonacute findings are listed in the report.
--- NOTE | 2024-01-09 14:20 | CTR_ITS ---
PROCEDURE INFORMATION: Exam: CT Cervical Spine Without Contrast Exam date and time: 01/09/2024 2:39 PM Age: 78 years old Clinical indication: Injury or trauma; Other: Mower accident; Blunt trauma TECHNIQUE: Imaging protocol: Computed tomography of the cervical spine without contrast. Sagittal and coronal reformatted images were created and reviewed. Radiation optimization: All CT scans at this facility use at least one of these dose optimization techniques: automated exposure control; mA and/or kV adjustment per patient size (includes targeted exams where dose is matched to clinical indication); or iterative reconstruction. COMPARISON: 1. CR XR cervical spine 3V* [id number] 09/10/2022 8:[address] chest wo con [id number] 01/01/2023 9:21 AM RADIATION DOSE METRICS: Total DLP (mGy-cm): 1054.9 FINDINGS: Bones: Findings are stable. Vertebral body height is maintained. No subluxation. Bones are diffusely osteopenic. Multilevel degenerative changes of varying severity in the visualized spine. 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 Calcification of the nuchal ligament at the C6 level. No acute fracture. Lungs: Visualized lungs are clear. Thyroid: Enlarged right thyroid lobe with substernal extension and leftward deviation of the visualized trachea. Amorphous calcifications in the right thyroid lobe. Vasculature: Atherosclerotic changes in the visualized arteries. Soft tissues: No soft tissue swelling. No radiopaque foreign body. CT/CT cervical spin wo con* [id number] IMPRESSION: 1. No acute fracture of the cervical spine. 2. Multilevel degenerative changes of varying severity in the visualized spine. 3. Enlarged right thyroid lobe with substernal extension and leftward deviation of the visualized trachea. Amorphous calcifications in the right thyroid lobe. Findings are stable. 4. Incidental/nonacute findings are listed in the report.
--- NOTE | 2024-01-09 14:20 | CTR_ITS ---
PROCEDURE INFORMATION: Exam: CT Head Without Contrast Exam date and time: 01/09/2024 2:39 PM Age: 78 years old Clinical indication: Injury or trauma; Other: Mower accident; Blunt trauma (contusions or hematomas); Without loss of consciousness TECHNIQUE: Imaging protocol: Computed tomography of the head without contrast. Sagittal and coronal reformatted images were created and reviewed. Radiation optimization: All CT scans at this facility use at least one of these dose optimization techniques: automated exposure control; mA and/or kV adjustment per patient size (includes targeted exams where dose is matched to clinical indication); or iterative reconstruction. COMPARISON: CT cervical spin wo con* [id number] 01/09/2024 2:39 PM RADIATION DOSE METRICS: Total DLP (mGy-cm): 315 FINDINGS: Brain: No acute intracranial hemorrhage. No acute infarct. No intra-axial or extra-axial masses. Carmichael-white matter differentiation is preserved. No cerebral edema. No extra-axial fluid collections. No midline shift. No evidence for Chiari 1 malformation. Mild atrophy of the brain parenchyma. Mildly decreased attenuation in the deep white matter, consistent with mild chronic microangiopathic change. Cerebral ventricles: No hydrocephalus. Paranasal sinuses: Small mucus retention cyst in the visualized right maxillary sinus. Other visualized paranasal sinuses are clear. Mastoid air cells: Mastoid air cells are clear bilaterally. Orbital cavities: Globes and lenses, extraocular muscles, and optic nerves are intact bilaterally. No acute intraorbital abnormality. Left scleral calcification. Bones: Unremarkable. No acute fracture. Soft tissues: No acute abnormality of the extracranial soft tissues. Vasculature: Mild atherosclerotic changes in the visualized arteries. CT/CT head wo con* [id number] IMPRESSION: 1. No acute abnormality of the brain. 2. Mild atrophy of the brain parenchyma. 3. Mild chronic white matter microangiopathic change. 4. Incidental/nonacute findings are listed in the report.
--- NOTE | 2024-01-09 14:25 | ED_ITS ---
HPI - Extremity Problem 2 General: Chief complaint: Extremity Injury, Lower Stated complaint: RT leg inj (tractor fell on it) Time Seen by Provider: 01/09/24 14:19 History of Present Illness: 78-year-old male who was loading a lawnm ower when it fell off and fell on top of him he is complaining of pain particularly in his back as well as lower leg. He denies any difficulty breathing denies any abdominal pain. Associated symptoms: Deny chest pain, fever(s) or rash Related Data Home Medications Medication Instructions Recorded Confirmed brimonidine 0.1 % eye drops 1 drp ophthalmic (eye) DAILY 11/20/19 10/23/23 (Alphagan P) latanoprost 0.005 % eye drops 1 drp ophthalmic (eye) BEDTIME 11/20/19 10/23/23 Previous Rx's Medication Instructions Recorded albuterol sulfate 90 mcg/actuation 1 inh inhalation QID PRN shortness 05/06/23 aerosol inhaler (Ventolin HFA) of breath or wheezing #8.5 grams sulfamethoxazole 800 1 tab PO BID 10 days #20 tabs 10/23/23 mg-trimethoprim 160 mg tablet (Bactrim DS) Allergies Allergy/AdvReac Type Severity Reaction Status Date / Time metoprolol Allergy breathing Uncoded 11/03/23 13:03 issues Review of Systems 2 Const: Denies: fever(s) or chills Card: Denies: chest pain Resp: Denies: dyspnea GI: Denies: abdominal pain : Denies: dysuria, urinary frequency or urinary urgency Musc: Reports: back pain; Denies: neck pain Skin/Breast: Denies: rash PFSH ED 2 PFSH: Medical History Pneumonitis Hyperuricemia Dry tongue Screening for cardiovascular condition Laceration of foot without foreign body Tick bite Gout Lower extremity edema HTN (hypertension) Surgical History History of knee surgery Social History Smoking and tobacco/nicotine status: never used tobacco/nicotine Second hand smoke exposure: No Alcohol intake: current Alcohol intake frequency: holidays/special occasions only Alcohol type: beer, wine and hard liquor Substance/Drug Use: never Marital status: / Number of children: 2 Number of grandchildren: 7 Current occupational status: employed Physical Exam 2 Const: GENERAL APPEARANCE: cooperative ORIENTATION/CONSCIOUSNESS: Yes awake, Yes oriented to person, Yes oriented to place and Yes oriented to time HENMT: COMMON NORMALS: normocephalic, atraumatic and hearing grossly normal bilaterally HEAD & SCALP: normocephalic and atraumatic Resp: COMMON NORMALS: normal respiratory effort, No retractions, No use of accessory muscles and clear to auscultation bilaterally AUSCULTATION: clear to auscultation bilaterally Cardio: COMMON NORMALS: regular rate, regular rhythm and No murmurs present (Cardio) RATE: regular rate RHYTHM: regular rhythm GI: COMMON NORMALS: Soft to palpation and No hepatosplenomegaly present A USCULTATION: Yes normoactive bowel sounds PALPATION: Yes Soft to palpation, No Tenderness to palpation present (GI), No Guarding due to palpation present (GI) and Yes No hepatosplenomegaly present Extremity: COMMON NORMALS: normal to inspection, capillary refill normal, no clubbing, cyanosis or edema, no calf tenderness and no pedal edema Neuro: SENSORIUM/ORIENTATION: Yes oriented to person, Yes oriented to place and Yes oriented to time Skin: COMMON NORMALS: no rashes or lesions noted GENERAL SKIN EXAM: no rashes or lesions noted Course 2 Vital Signs: Vital signs: Vital Signs Temperature 98.1 F 01/09/24 13:50 Pulse Rate 98 01/09/24 18:32 Respiratory Rate 18 01/09/24 13:50 Blood Pressure 139/86 01/09/24 18:32 Pulse Oximetry 97 01/09/24 18:32 Oxygen Delivery Me thod Room Air 01/09/24 14:27 MDM - Extremity (Nontraumatic) Medical Decision Making Patient has DISH syndrome there is a fracture through the anterior longitudinal ligament and appears to be an unstable thoracic fracture at the T8 level. Reviewed with radiology. Will transfer to trauma to [facility] emergency room. Medical Records I reviewed the patient's medical records. Lab Data I reviewed the patient's lab results. 01/09/24 15:11 01/09/24 15:11 Radiology Impressions Cervical Spine CT 01/09/24 14:20 IMPRESSION: 1. No acute fracture of the cervical spine. 2. Multilevel degenerative changes of varying severity in the visualized spine. 3. Enlarged right thyroid lobe with substernal extension and leftward deviation of the visualized trachea. Amorphous calcifications in the right thyroid lobe. Findings are stable. 4. Incidental/nonacute findings are listed in the report. Chest/Abdomen/Pelvis CT 01/09/24 14:20 IMPRESSION: 1. Stable calcification of the anterior longitudinal ligament at T7 through T11, suggesting diffuse idiopathic skeletal hyperostosis (DISH). There is an acute fracture through the right anterolateral calcified anterior longitudinal ligament at the T7/8 level. It is uncertain whether the fracture extends into the T8 vertebral body (series 7, image 18 and series 8, image 37). Findings are concerning for an unstable fracture. 2. Large right thyroid lobe with substernal extension and leftward deviation of the trachea extensive amorphous calcification in the right thyroid lobe, findings are stable. IMPRESSION: 1. 7.2 x 2.1 x 9.2 cm hematoma in the posterior midline subcutaneous tissues at the L1 through L3 levels with surrounding contusion. No evidence for active bleeding. 2. Stable sigmoid diverticulosis. No evidence for diverticulitis. 3. Incidental/nonacute findings are listed in the report. ADDENDUM: 01/09/24 1649 THIS REPORT CONTAINS FINDINGS THAT MAY BE CRITICAL TO PATIENT CARE. The findings were verbally communicated via telephone conference with KENNY Joyner at 4:47 PM CDT on 01/09/2024. The findings were acknowledged and understood. Head CT 01/09/24 14:20 IMPRESSION: 1. No acute abnormality of the brain. 2. Mild atrophy of the brain parenchyma. 3. Mild chronic white matter microangiopathic change. 4. Incidental/nonacute findings are listed in the report. Tibia/Fibula X-Ray 01/09/24 14:20 IMPRESSION: 1. No acute fracture of the right tibia/fibula. Followup radiographs recommended in 7-14 days if clinical concern for fracture persists. 2. Soft tissue swelling at the medial/posterior right lower leg. 3. Incidental/nonacute findings are listed in the report. Laboratory Results WBC 14.47 10^3/uL (3.29-11.43) H 01/09/24 15:11 RBC 4.93 10^6/uL (3.85-5.65) 01/09/24 15:11 Hgb 13.70 g/dL (11.27-16.99) 01/09/24 15:11 Hct 42.7 % (37-53) 01/09/24 15:11 MCV 86.6 fl (82-101) 01/09/24 15:11 MCH 27.8 pg (27-33) 01/09/24 15:11 MCHC 32.1 g/dL (30-55) 01/09/24 15:11 RDW 15.9 % (12.1-15.1) H 01/09/24 15:11 Plt Count 274 10^3/cmm (157-399) 01/09/24 15:11 MPV 10.3 fL (7.4-10.4) 01/09/24 15:11 Neut % (Auto) 83.7 % 01/09/24 15:11 Lymph % (Auto) 7.7 % 01/09/24 15:11 [place] % (Auto) 6.1 % 01/09/24 15:11 Eos % (Auto) 0.7 % 01/09/24 15:11 Baso % (Auto) 0.3 % 01/09/24 15:11 Neut # (Auto) 12.10 10^3/uL (1.8-7.7) H 01/09/24 15:11 Lymph # (Auto) 1.1 10^3/uL (0.8-4.8) 01/09/24 15:11 [place] # (Auto) 0.9 10^3/uL (0.2-0.9) 01/09/24 15:11 Eos # (Auto) 0.1 10^3/uL (0.0-0.8) 01/09/24 15:11 Baso # (Auto) 0.1 10^3/uL (0.0-0.1) 01/09/24 15:11 Nucleated RBC % (auto) 0 % 01/09/24 15:11 Nucleated RBCs # 0.0 /100WBC 01/09/24 15:11 Sodium 140 mmol/L (136-145) 01/09/24 15:11 Potassium 4.6 mmol/L (3.5-5.1) 01/09/24 15:11 Chloride 106 mmol/L (98-107) 01/09/24 15:11 Carbon Dioxide 25 mmol/L (22-29) 01/09/24 15:11 Anion Gap 13.6 (5-19) 01/09/24 15:11 BUN 12 mg/dL (8-23) 01/09/24 15:11 Creatinine 0.9 mg/dL (0.7-1.2) 01/09/24 15:11 GFR Calculation Not Reportable 01/09/24 15:11 Glucose 114 mg/dL (65-115) 01/09/24 15:11 Calculated Osmolality 291 mOsm/kg (285-295) 01/09/24 15:11 Calcium 8.6 mg/dL (8.5-10.5) 01/09/24 15:11 Total Bilirubin 0.5 mg/dL (0.15-1.2) 01/09/24 15:11 AST 14 U/L (0-40) 01/09/24 15:11 ALT 14 U/L (0-41) 01/09/24 15:11 Alkaline Phosphatase 111 U/L (40-130) 01/09/24 15:11 Total Protein 6.2 g/dL (6.6-8.7) L 01/09/24 15:11 Albumin 3.9 g/dL (3.5-5.2) 01/09/24 15:11 Globulin 2.3 g/dL (1.3-4.6) 01/09/24 15:11 Urine Color Dark yellow (Yellow) A 01/09/24 15:15 Urine Appearance Clear (CLEAR) 01/09/24 15:15 Urine pH 5.5 (5-7) 01/09/24 15:15 Ur Specific Benson 1.048 (1.005-1.030) H 01/09/24 15:15 Urine Protein Negative (Negative) 01/09/24 15:15 Urine Glucose (UA) Negative (Normal) 01/09/24 15:15 Urine Ketones Trace (Negative) 01/09/24 15:15 Urine Blood Negative (Negative) 01/09/24 15:15 Urine Nitrate Negative (Negative) 01/09/24 15:15 Urine Bilirubin 1+ (Negative) H 01/09/24 15:15 Urine Urobilinogen 1.0 mg/dL (Negative) 01/09/24 15:15 Ur Leukocyte Esterase Negative (Negative) 01/09/24 15:15 Urine RBC 0-2 /hpf (0-2) 01/09/24 15:15 Urine WBC 0-5 /hpf (0-5) 01/09/24 15:15 Ur Squamous Epith Cells 0-5 /hpf (0-5) 01/09/24 15:15 Amorphous Sediment Not Reportable 01/09/24 15:15 Urine Bacteria None seen /hpf (NONE) 01/09/24 15:15 Hyaline Casts 1.21 /lpf 01/09/24 15:15 All radiology interpretation(s) finalized by discharge Discharge Plan Discharge Patient Disposition: Transfer to ED Clinical Impression: Fracture of thoracic spine, DISH (diffuse idiopathic skeletal hyperostosis), Trauma Condition: Stable Prescriptions: No Action albuterol sulfate [Ventolin HFA] 90 mcg/actuation HFA aerosol inhaler 1 inh inhalation QID PRN (Reason: shortness of breath or wheezing) Qty: 8.5 3RF sulfamethoxazole-trimethoprim [Bactrim DS] 800-160 mg tablet 1 tab PO BID 10 Days Qty: 20 0RF latanoprost 0.005 % drops 1 drp ophthalmic (eye) BEDTIME Alphagan P 0.1 % drops 1 drp ophthalmic (eye) DAILY Rx Instructions: pt states he only uses in the am in both eyes Referrals: Barrett Rodriguez MD [Primary Care Provider] - Coding Level of Care Code ED Detective [facility] for Tracey Chaudhari
[2024-01-09] MEDS: iohexol 350 mg/mL 500 mL Btl (per mL) IV (14:54)
[2024-01-09 15:16] LABS: Basophils # 0.1 10^3/uL (0.0-0.1); Basophils % 0.3 %; Eosinophils # 0.1 10^3/uL (0.0-0.8); Eosinophils % 0.7 %; Hematocrit 42.7 % (37-53); Lymphocytes # 1.1 10^3/uL (0.8-4.8); Lymphocytes % 7.7 %; Mean Corpuscular HGB Conc 32.1 g/dL (30-55); Mean Corpuscular Hemoglobin 27.8 pg (27-33); Mean Corpuscular Volume 86.6 fl (82-101); Mean Platelet Volume 10.3 fL (7.4-10.4); Monocytes # 0.9 10^3/uL (0.2-0.9); Monocytes % 6.1 %; Neutrophils % 83.7 %; Nucleated Red Blood Cells % 0 %; Platelet Count 274 10^3/cmm (157-399); Red Blood Count 4.93 10^6/uL (3.85-5.65); Red Cell Distribution Width 15.9 % (12.1-15.1); White Blood Count 14.47 10^3/uL (3.29-11.43)
[2024-01-09 15:30] LABS: Bilirubin Urine 1+ (Negative); Blood Urine Negative (Negative); Glucose Urine UA Negative (Normal); Ketones Urine Trace (Negative); Leukocyte Esterase Urine Negative (Negative); Nitrate Urine Negative (Negative); Protein Urine Negative (Negative); Urine Appearance Clear (CLEAR); Urine Color Dark Yellow (Yellow); pH Urine 5.5 (5-7)
[2024-01-09 15:32] LABS: Alanine Aminotransferase 14 U/L (0-41); Albumin Level 3.9 g/dL (3.5-5.2); Alkaline Phosphatase 111 U/L (40-130); Anion Gap 13.6 (5-19); Aspartate Amino Transferase 14 U/L (0-40); Blood Urea Nitrogen 12 mg/dL (8-23); Calcium 8.6 mg/dL (8.5-10.5); Carbon Dioxide 25 mmol/L (22-29); Chloride 106 mmol/L (98-107); Creatinine Clr Calc Pharmacy 89.3659; Globulin 2.3 g/dL (1.3-4.6); Glucose 114 mg/dL (65-115); Osmolality Calculated 291 mOsm/kg (285-295); Potassium 4.6 mmol/L (3.5-5.1); Sodium 140 mmol/L (136-145); Total Bilirubin 0.5 mg/dL (0.15-1.2); Total Protein 6.2 g/dL (6.6-8.7)
[2024-01-09 15:33] LABS: Add Urine Microscopic? YES; Bacteria Urine None Seen /hpf; Hyaline Casts Urine 1.21 /lpf; RBC Urine 0-2 /hpf (0-2); Squamous Epithelial Cell Urine 0-5 /hpf (0-5); WBC Urine 0-5 /hpf (0-5)
[2024-01-09 15:36] LABS: Specific Gravity, Urine 1.048 (1.005-1.030)
== END 2024-01-09 18:34 ==
PROVIDERS: Family Medicine; Emergency Provider Emergency Medicine; PCP Family Medicine
DX: M48.14 Ankylosing hyperostosis [Forestier], thoracic region (principal); S89.91XA Unspecified injury of right lower leg, initial encounter; S22.069A Unspecified fracture of T7-T8 vertebra, initial encounter for closed fracture; W20.8XXA Other cause of strike by thrown, projected or falling object, initial encounter
CPT/HCPCS: 70450; 71260; 72125; 73590; 74177; 80053; 81001; 85025; 99285

== ENCOUNTER 2024-02-12 08:06 | Outpatient (CLI) | payer MEDICARE, SELFPAY ==
--- NOTE | 2024-02-12 08:45 | US_ITS ---
WS: [id number] ULTRASOUND SOFT TISSUES medial RIGHT calf HISTORY: M79.89 - Other specified soft tissue disorders, significant soft tissue injury 1 month ago. COMPARISON: None available. TECHNIQUE: 2-D and color Doppler imaging is submitted. There is a large complex fluid collection with low-level echoes and septations along the medial RIGHT calf. No increased vascularity. There is no significant thickening of the wall. Exact measurements are very difficult due to the extent of this collection which is greater than 10 c m. US/US soft tissue/extremity [id number] IMPRESSION: 1. Large complex mass along the medial RIGHT calf. The entire extent of this m ass cannot be measured accurately due to its size. Mass is greater than 10 cm i n length. Due to the recent injury this is probably a soft tissue hematoma or s eroma. No evidence for an abscess.
== END 2024-02-12 08:07 | disposition home or self-care (01) ==
PROVIDERS: PCP Family Medicine; Visit Provider Family Medicine
DX: R22.41 Localized swelling, mass and lump, right lower limb (principal)
CPT/HCPCS: 76882

== ENCOUNTER → 2024-02-24 09:28 | Outpatient (BNVA) | payer MEDICARE, SELFPAY | PROVIDERS: PCP Family Medicine; Referring Provider Family Medicine; Visit Provider Surgery | DX: S80.10XA Contusion of unspecified lower leg, initial encounter (principal); M79.89 Other specified soft tissue disorders; X58.XXXA Exposure to other specified factors, initial encounter | CPT/HCPCS: 99204 ==

== ENCOUNTER → 2024-03-01 09:33 | Outpatient (BNVA) | payer MEDICARE, SELFPAY | PROVIDERS: PCP Family Medicine; Visit Provider Nurse Practitioner Family | DX: T81.89XA Other complications of procedures, not elsewhere classified, initial encounter (principal); X58.XXXA Exposure to other specified factors, initial encounter | CPT/HCPCS: 99214 ==

== ENCOUNTER → 2024-03-02 11:18 | Outpatient (BNVA) | payer MEDICARE, SELFPAY | PROVIDERS: PCP Family Medicine; Visit Provider Surgery | DX: T79.2XXA Traumatic secondary and recurrent hemorrhage and seroma, initial encounter (principal); X58.XXXA Exposure to other specified factors, initial encounter | CPT/HCPCS: 99214 ==

== ENCOUNTER → 2024-03-04 07:59 | Outpatient (BNVA) | payer MEDICARE, SELFPAY | PROVIDERS: PCP Family Medicine; Visit Provider Thoracic Surgery (Cardiothoracic Vascular Surgery) | DX: I96 Gangrene, not elsewhere classified (principal); L97.812 Non-pressure chronic ulcer of other part of right lower leg with fat layer exposed | CPT/HCPCS: 11042; 11045; 97597; 99213 ==

== ENCOUNTER → 2024-03-09 09:11 | Outpatient (BNVA) | payer MEDICARE, SELFPAY | PROVIDERS: PCP Family Medicine; Visit Provider Thoracic Surgery (Cardiothoracic Vascular Surgery) | DX: I96 Gangrene, not elsewhere classified (principal); S81.801D Unspecified open wound, right lower leg, subsequent encounter; W22.8XXD Striking against or struck by other objects, subsequent encounter | CPT/HCPCS: 11042; 11045 ==

== ENCOUNTER → 2024-03-14 07:55 | Outpatient (BNVA) | payer MEDICARE, SELFPAY | PROVIDERS: PCP Family Medicine; Visit Provider Thoracic Surgery (Cardiothoracic Vascular Surgery) | DX: I96 Gangrene, not elsewhere classified (principal); S81.801D Unspecified open wound, right lower leg, subsequent encounter; W22.8XXD Striking against or struck by other objects, subsequent encounter | CPT/HCPCS: 99211; A6446 ==

== ENCOUNTER → 2024-03-15 14:20 | Outpatient (BNVA) | payer MEDICARE, SELFPAY | PROVIDERS: PCP Family Medicine; Visit Provider Thoracic Surgery (Cardiothoracic Vascular Surgery) | DX: I96 Gangrene, not elsewhere classified (principal); S81.801D Unspecified open wound, right lower leg, subsequent encounter; W22.8XXD Striking against or struck by other objects, subsequent encounter | CPT/HCPCS: 11042; 97605; A6237; A6250 ==

== ENCOUNTER → 2024-03-22 09:06 | Outpatient (BNVA) | payer MEDICARE, SELFPAY | PROVIDERS: PCP Family Medicine; Visit Provider Thoracic Surgery (Cardiothoracic Vascular Surgery) | DX: I96 Gangrene, not elsewhere classified (principal); L97.812 Non-pressure chronic ulcer of other part of right lower leg with fat layer exposed | CPT/HCPCS: 11042; 87070; 87077; 87186; 97605; A6237; A6250 ==

== ENCOUNTER → 2024-03-23 14:31 | Outpatient (BNVA) | payer MEDICARE, SELFPAY | PROVIDERS: PCP Family Medicine; Visit Provider Surgery | DX: T79.2XXA Traumatic secondary and recurrent hemorrhage and seroma, initial encounter (principal); X58.XXXA Exposure to other specified factors, initial encounter | CPT/HCPCS: 99212 ==

== ENCOUNTER 2024-03-24 10:57 | Outpatient (CLI) | payer MEDICARE, SELFPAY ==
[2024-03-24 11:15] LABS: Basophils % 0.2 %; Eosinophils # 0.2 10^3/uL (0.0-0.8); Eosinophils % 1.2 %; Hematocrit 44.6 % (37-53); Lymphocytes # 1.2 10^3/uL (0.8-4.8); Lymphocytes % 8.3 %; Mean Corpuscular HGB Conc 32.3 g/dL (30-55); Mean Corpuscular Hemoglobin 26.6 pg (27-33); Mean Corpuscular Volume 82.4 fl (82-101); Mean Platelet Volume 9.4 fL (7.4-10.4); Monocytes # 1.3 10^3/uL (0.2-0.9); Monocytes % 9.5 %; Neutrophils # 11.02 10^3/uL (1.8-7.7); Neutrophils % 79.6 %; Nucleated Red Blood Cells % 0 %; Platelet Count 395 10^3/cmm (157-399); Red Blood Count 5.41 10^6/uL (3.85-5.65); Red Cell Distribution Width 14.2 % (12.1-15.1); White Blood Count 13.85 10^3/uL (3.29-11.43)
[2024-03-24 11:36] LABS: Anion Gap 19.6 (5-19); Blood Urea Nitrogen 14 mg/dL (8-23); Calcium 9.4 mg/dL (8.5-10.5); Carbon Dioxide 24 mmol/L (22-29); Chloride 96 mmol/L (98-107); Glucose 134 mg/dL (65-115); Osmolality Calculated 282 mOsm/kg (285-295); Potassium 4.6 mmol/L (3.5-5.1); Sodium 135 mmol/L (136-145)
== END 2024-03-24 10:58 | disposition home or self-care (01) ==
PROVIDERS: PCP Family Medicine
DX: L97.215 Non-pressure chronic ulcer of right calf with muscle involvement without evidence of necrosis (principal); A49.02 Methicillin resistant Staphylococcus aureus infection, unspecified site
CPT/HCPCS: 36415; 80048; 85025

== ENCOUNTER → 2024-03-25 07:43 | Outpatient (BNVA) | payer MEDICARE, SELFPAY | PROVIDERS: PCP Family Medicine; Visit Provider Thoracic Surgery (Cardiothoracic Vascular Surgery) | DX: L97.215 Non-pressure chronic ulcer of right calf with muscle involvement without evidence of necrosis (principal) | CPT/HCPCS: 97605; A6237; A6250 ==

== ENCOUNTER → 2024-03-29 08:13 | Outpatient (BNVA) | payer MEDICARE, SELFPAY | PROVIDERS: PCP Family Medicine; Visit Provider Thoracic Surgery (Cardiothoracic Vascular Surgery) | DX: I96 Gangrene, not elsewhere classified (principal); S81.801D Unspecified open wound, right lower leg, subsequent encounter; W22.8XXD Striking against or struck by other objects, subsequent encounter | CPT/HCPCS: 11042; A6237; A6250 ==

== ENCOUNTER → 2024-04-01 10:09 | Outpatient (BNVA) | payer MEDICARE, SELFPAY | PROVIDERS: PCP Family Medicine; Visit Provider Thoracic Surgery (Cardiothoracic Vascular Surgery) | DX: T79.2XXD Traumatic secondary and recurrent hemorrhage and seroma, subsequent encounter (principal); Y83.8 Other surgical procedures as the cause of abnormal reaction of the patient, or of later complication, without mention of misadventure at the time of the procedure; L97.215 Non-pressure chronic ulcer of right calf with muscle involvement without evidence of necrosis | CPT/HCPCS: 97605; A6237; A6250 ==

== ENCOUNTER → 2024-04-04 11:22 | Outpatient (BNVA) | payer MEDICARE, SELFPAY | PROVIDERS: PCP Family Medicine; Visit Provider Thoracic Surgery (Cardiothoracic Vascular Surgery) | DX: I96 Gangrene, not elsewhere classified (principal); S81.801D Unspecified open wound, right lower leg, subsequent encounter; W22.8XXD Striking against or struck by other objects, subsequent encounter | CPT/HCPCS: 97597; A6237; A6250 ==

== ENCOUNTER → 2024-04-07 07:49 | Outpatient (BNVA) | payer MEDICARE, SELFPAY | PROVIDERS: PCP Family Medicine; Visit Provider Thoracic Surgery (Cardiothoracic Vascular Surgery) | DX: I96 Gangrene, not elsewhere classified (principal); S81.801D Unspecified open wound, right lower leg, subsequent encounter; W22.8XXD Striking against or struck by other objects, subsequent encounter | CPT/HCPCS: 97597; 97605; A6237; A6250 ==

== ENCOUNTER → 2024-04-11 10:03 | Outpatient (BNVA) | payer MEDICARE, SELFPAY | PROVIDERS: PCP Family Medicine; Visit Provider Thoracic Surgery (Cardiothoracic Vascular Surgery) | DX: I96 Gangrene, not elsewhere classified (principal); S81.801D Unspecified open wound, right lower leg, subsequent encounter; W22.8XXD Striking against or struck by other objects, subsequent encounter | CPT/HCPCS: 97605; A6237; A6250 ==

== ENCOUNTER → 2024-04-14 09:19 | Outpatient (BNVA) | payer MEDICARE, SELFPAY | PROVIDERS: PCP Family Medicine; Visit Provider Thoracic Surgery (Cardiothoracic Vascular Surgery) | DX: L97.215 Non-pressure chronic ulcer of right calf with muscle involvement without evidence of necrosis (principal); T79.2XXD Traumatic secondary and recurrent hemorrhage and seroma, subsequent encounter; Y83.8 Other surgical procedures as the cause of abnormal reaction of the patient, or of later complication, without mention of misadventure at the time of the procedure | CPT/HCPCS: 11042; 97597; 97605; A6237; A6250 ==

== ENCOUNTER 2024-04-17 14:38 | Emergency (ER) | payer MEDICARE, SELFPAY ==
[2024-04-17 14:42] VITALS: BP 144/90; PULSE 99; RESP 17; TEMP 36.5; O2SAT 100; BMI 32.5
--- NOTE | 2024-04-17 15:02 | XRR_ITS ---
PROCEDURE INFORMATION: Exam: XR Soft Tissue Neck Exam date and time: 04/17/2024 3:17 PM Age: 78 years old Clinical indication: Pain; Patient HX: PT arrives with complaint of vitamin pill stuck in throat. PT airway patent and unobstructed. PT states he wants someone to pull it out. PT is alert and oriented. PT states the pill is not affecting his airway; Additional info: Fb throat TECHNIQUE: Imaging protocol: Radiologic exam of the soft tissues of the neck. COMPARISON: CT cervical spin wo con* [id number] 01/09/2024 2:39 PM FINDINGS: Airway: Normal. No abnormal narrowing. Soft tissues: There is calcified mass in the right upper mediastinum that is a chronic finding. No foreign body noted. Bones/joints: Unremarkable. XR/XR soft tissue neck [id number] IMPRESSION: No definite foreign body noted
[2024-04-17 16:27] VITALS: BP 154/101; PULSE 91; O2SAT 96
--- NOTE | 2024-04-17 16:34 | W.ED.GENADLT ---
HPI - General Adult General: Chief complaint: Airway/Esophagus Foreign Body Stated complaint: pill caught in throat Time Seen by Provider: 04/17/24 14:50 History of Present Illness: This patient is a 78-year-old white male who presents to the emergency department stating that he feels like a pill is stuck in his throat. He states he swallowed a vitamin tablet at 8:00 this morning and feels like it stuck on the right side of his throat. Patient states he has tried to push it down with his finger but continues to feel the foreign body sensation there. States he has never had anything stuck like this before. He is not coughing or gagging. No shortness of breath. 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 MRSA (methicillin resistant Staphylococcus aureus) infection Pneumonitis Hyperuricemia Dry tongue Screening for cardiovascular condition Laceration of foot without foreign body Tick bite Gout Lower extremity edema HTN (hypertension) Surgical History History of knee surgery Social History Smoking and tobacco/nicotine status: never used tobacco/nicotine Second hand smoke exposure: No Alcohol intake: current Alcohol intake frequency: holidays/special occasions only Alcohol type: beer, wine and hard liquor Substance/Drug Use: never Marital status: / Number of children: 2 Number of grandchildren: 7 Current occupational status: employed Physical Exam Const: COMMON NORMALS: no acute distress, patient oriented x3 and no limitations GENERAL APPEARANCE: cooperative and comfortable HENMT: COMMON NORMALS: normocephalic, atraumatic, Normal nasal mucous membranes and turbinates present, moist oral mucous membranes and oropharynx normal HEAD & SCALP: normal to inspection, normocephalic and atraumatic FACE & SINUS: normal facial exam NOSE: Normal nasal mucous membranes and turbinates present THROAT: posterior oropharynx normal Eye: COMMON NORMALS: Equal, round and reactive pupils present, EOMs intact bilaterally and conjunctivae normal GENERAL EYE: appearance normal, both eyes and all related structures CONJUNCTIVA: Yes conjunctivae normal PUPIL: Yes Equal, round and reactive pupils present Neck/C-Spine: COMMON NORMALS: supple and no JVD Chest: COMMONS NORMALS: normal inspection of the chest Resp: COMMON NORMALS: normal respiratory effort and clear to auscultation bilaterally AUSCULTATION: clear to auscultation bilaterally Cardio: COMMON NORMALS: no JVD, regular rate, regular rhythm, No gallops present (Cardio), No murmurs present (Cardio) and No rub (Cardio) RATE: regular rate RHYTHM: regular rhythm GI: COMMON NORMALS: Normal to inspection, nondistended, normoactive bowel sounds present, Soft to palpation and non-tender AUSCULTATION: Yes normoactive bowel sounds PALPATION: Yes Soft to palpation : COMMON NORMALS: Yes no CVA tenderness BLADDER/KIDNEY EXAM: Yes no CVA tenderness Back/Pelvis: COMMON NORMALS: no CVA tenderness and thoracic and lumbar spine normal to inspection Extremity: COMMON NORMALS: normal to inspection Neuro: COMMON NORMALS: patient oriented x3 and CN's II-XII intact bilaterally Psych: COMMON NORMALS: mental status grossly normal, Normal thought process present and cooperative THOUGHT PROCESS: Normal thought process present Skin: COMMON NORMALS: no rashes or lesions noted, turgor normal and no jaundice GENERAL SKIN EXAM: no rashes or lesions noted and turgor normal Course Vital Signs: Vital signs: Vital Signs Temperature 97.7 F 04/17/24 14:42 Pulse Rate 91 04/17/24 16:27 Respiratory Rate 17 04/17/24 14:42 Blood Pressure 154/101 04/17/24 16:27 Pulse Oximetry 96 04/17/24 16:27 Oxygen Delivery Me thod Room Air 04/17/24 14:42 [facility] - General Adult Medical Decision Making X-rays of the soft tissue of the neck did not reveal a radiopaque foreign body. Patient drank Coke and thought that the pill has now passed. Patient was discharged in stable condition instructed to follow-up with his primary care physician as needed Lab Data Radiology Impressions Soft Tissue Neck X-Ray 04/17/24 15:02 IMPRESSION: No definite foreign body noted XR interpretation done by ED provider, pending radiology final review Discharge Plan Discharge Patient Disposition: Home Clinical Impression: Foreign body sensation in throat Condition: Stable Prescriptions: No Action latanoprost 0.005 % drops 1 drp ophthalmic (eye) BEDTIME Discharge Orders: Discharge ED (Routine); Ordered 04/17/24 Ordered By: Hola Marquez Referrals: Barrett Rodriguez MD [Primary Care Provider] - Coding Level of Care Code ED Chiropractic Neurologist for Tracey Chaudhari
== END 2024-04-17 16:30 | disposition home or self-care (01) ==
PROVIDERS: Emergency Provider Emergency Medicine; PCP Family Medicine
DX: R09.A2 Foreign body sensation, throat (principal); I10 Essential (primary) hypertension
CPT/HCPCS: 70360; 99283

== ENCOUNTER → 2024-04-18 07:56 | Outpatient (BNVA) | payer MEDICARE, SELFPAY | PROVIDERS: PCP Family Medicine; Visit Provider Thoracic Surgery (Cardiothoracic Vascular Surgery) | DX: I96 Gangrene, not elsewhere classified (principal); T79.2XXD Traumatic secondary and recurrent hemorrhage and seroma, subsequent encounter; S81.801D Unspecified open wound, right lower leg, subsequent encounter; W22.8XXD Striking against or struck by other objects, subsequent encounter | CPT/HCPCS: A6237; A6250 ==

== ENCOUNTER → 2024-04-21 15:19 | Outpatient (BNVA) | payer MEDICARE, SELFPAY | PROVIDERS: PCP Family Medicine; Visit Provider Thoracic Surgery (Cardiothoracic Vascular Surgery) | DX: T79.2XXD Traumatic secondary and recurrent hemorrhage and seroma, subsequent encounter (principal); Y83.8 Other surgical procedures as the cause of abnormal reaction of the patient, or of later complication, without mention of misadventure at the time of the procedure; L97.215 Non-pressure chronic ulcer of right calf with muscle involvement without evidence of necrosis | CPT/HCPCS: 11042; 97605; A6237; A6250 ==

== ENCOUNTER → 2024-04-25 08:27 | Outpatient (BNVA) | payer MEDICARE, SELFPAY | PROVIDERS: PCP Family Medicine; Visit Provider Thoracic Surgery (Cardiothoracic Vascular Surgery) | DX: I96 Gangrene, not elsewhere classified (principal); T79.2XXD Traumatic secondary and recurrent hemorrhage and seroma, subsequent encounter; Y83.8 Other surgical procedures as the cause of abnormal reaction of the patient, or of later complication, without mention of misadventure at the time of the procedure; S81.801D Unspecified open wound, right lower leg, subsequent encounter; W22.8XXD Striking against or struck by other objects, subsequent encounter | CPT/HCPCS: 87070; 87176; 87205; A6446 ==

== ENCOUNTER → 2024-04-26 10:06 | Outpatient (BNVA) | payer MEDICARE, SELFPAY | PROVIDERS: PCP Family Medicine; Visit Provider Thoracic Surgery (Cardiothoracic Vascular Surgery) | DX: T79.2XXD Traumatic secondary and recurrent hemorrhage and seroma, subsequent encounter (principal); Y83.8 Other surgical procedures as the cause of abnormal reaction of the patient, or of later complication, without mention of misadventure at the time of the procedure; L97.215 Non-pressure chronic ulcer of right calf with muscle involvement without evidence of necrosis | CPT/HCPCS: 99213; A6446 ==

== ENCOUNTER → 2024-04-28 09:19 | Outpatient (BNVA) | payer MEDICARE, SELFPAY | PROVIDERS: PCP Family Medicine; Visit Provider Thoracic Surgery (Cardiothoracic Vascular Surgery) | DX: I96 Gangrene, not elsewhere classified (principal); S81.801D Unspecified open wound, right lower leg, subsequent encounter; W22.8XXD Striking against or struck by other objects, subsequent encounter | CPT/HCPCS: 11042; A6446 ==

== ENCOUNTER → 2024-05-02 11:07 | Outpatient (BNVA) | payer MEDICARE, SELFPAY | PROVIDERS: PCP Family Medicine; Visit Provider Thoracic Surgery (Cardiothoracic Vascular Surgery) | DX: I96 Gangrene, not elsewhere classified (principal); S81.801D Unspecified open wound, right lower leg, subsequent encounter; W22.8XXD Striking against or struck by other objects, subsequent encounter | CPT/HCPCS: 11042; A6446 ==

== ENCOUNTER → 2024-05-05 08:11 | Outpatient (BNVA) | payer MEDICARE, SELFPAY | PROVIDERS: PCP Family Medicine; Visit Provider Thoracic Surgery (Cardiothoracic Vascular Surgery) | DX: L97.215 Non-pressure chronic ulcer of right calf with muscle involvement without evidence of necrosis (principal); T79.2XXD Traumatic secondary and recurrent hemorrhage and seroma, subsequent encounter; Y83.8 Other surgical procedures as the cause of abnormal reaction of the patient, or of later complication, without mention of misadventure at the time of the procedure | CPT/HCPCS: 11042; 99212; A6219; A6446 ==

== ENCOUNTER 2024-05-09 09:07 | Outpatient (CLI) | payer MEDICARE, SELFPAY ==
[2024-05-09 10:08] LABS: Basophils % 0.6 %; Eosinophils # 0.2 10^3/uL (0.0-0.8); Eosinophils % 3.2 %; Hematocrit 43.1 % (37-53); Lymphocytes # 1.2 10^3/uL (0.8-4.8); Lymphocytes % 16.4 %; Mean Corpuscular Hemoglobin 26.1 pg (27-33); Mean Corpuscular Volume 81.5 fl (82-101); Mean Platelet Volume 9.9 fL (7.4-10.4); Monocytes # 0.7 10^3/uL (0.2-0.9); Monocytes % 9.7 %; Neutrophils # 4.94 10^3/uL (1.8-7.7); Neutrophils % 68.7 %; Nucleated Red Blood Cells % 0 %; Platelet Count 382 10^3/cmm (157-399); Red Blood Count 5.29 10^6/uL (3.85-5.65); Red Cell Distribution Width 16.1 % (12.1-15.1); White Blood Count 7.19 10^3/uL (3.29-11.43)
[2024-05-09 10:31] LABS: Anion Gap 13.5 (5-19); Blood Urea Nitrogen 11 mg/dL (8-23); Calcium 9.3 mg/dL (8.5-10.5); Carbon Dioxide 26 mmol/L (22-29); Chloride 105 mmol/L (98-107); Glucose 98 mg/dL (65-115); Osmolality Calculated 289 mOsm/kg (285-295); Potassium 4.5 mmol/L (3.5-5.1); Sodium 140 mmol/L (136-145)
== END 2024-05-09 09:08 | disposition home or self-care (01) ==
PROVIDERS: PCP Family Medicine; Visit Provider Thoracic Surgery (Cardiothoracic Vascular Surgery)
DX: S81.801A Unspecified open wound, right lower leg, initial encounter (principal); M79.606 Pain in leg, unspecified; X58.XXXA Exposure to other specified factors, initial encounter
CPT/HCPCS: 36415; 80048; 85025; 86140; A6446

== ENCOUNTER 2024-05-12 08:15 | Outpatient (CLI) | payer MEDICARE, SELFPAY ==
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
[2024-05-12] MEDS: iohexol 350 mg/mL 500 mL Btl (per mL) IV (08:50)
== END 2024-05-12 08:16 | disposition home or self-care (01) ==
LOC: RAD 08:17
PROVIDERS: PCP Family Medicine; Visit Provider Thoracic Surgery (Cardiothoracic Vascular Surgery)
DX: S81.801A Unspecified open wound, right lower leg, initial encounter (principal); W28.XXXA Contact with powered lawn mower, initial encounter; R93.6 Abnormal findings on diagnostic imaging of limbs; I70.201 Unspecified atherosclerosis of native arteries of extremities, right leg; L03.115 Cellulitis of right lower limb; T79.2XXD Traumatic secondary and recurrent hemorrhage and seroma, subsequent encounter; Y83.8 Other surgical procedures as the cause of abnormal reaction of the patient, or of later complication, without mention of misadventure at the time of the procedure; L97.215 Non-pressure chronic ulcer of right calf with muscle involvement without evidence of necrosis
CPT/HCPCS: 73701; 97602; A6446

== ENCOUNTER → 2024-05-16 08:14 | Outpatient (BNVA) | payer MEDICARE, SELFPAY | PROVIDERS: PCP Family Medicine; Visit Provider Thoracic Surgery (Cardiothoracic Vascular Surgery) | DX: T79.2XXD Traumatic secondary and recurrent hemorrhage and seroma, subsequent encounter (principal); Y83.8 Other surgical procedures as the cause of abnormal reaction of the patient, or of later complication, without mention of misadventure at the time of the procedure; S81.801D Unspecified open wound, right lower leg, subsequent encounter; W22.8XXD Striking against or struck by other objects, subsequent encounter | CPT/HCPCS: 11042; 97597 ==

== ENCOUNTER → 2024-05-17 09:45 | Outpatient (BNVA) | payer MEDICARE, SELFPAY | PROVIDERS: PCP Family Medicine; Visit Provider Surgery | DX: R60.0 Localized edema (principal); M79.89 Other specified soft tissue disorders | CPT/HCPCS: 99213 ==

== ENCOUNTER → 2024-05-31 09:22 | Outpatient (BNVA) | payer MEDICARE, SELFPAY | PROVIDERS: PCP Family Medicine; Visit Provider Surgery | DX: L97.215 Non-pressure chronic ulcer of right calf with muscle involvement without evidence of necrosis (principal) | CPT/HCPCS: 99213 ==

== ENCOUNTER → 2024-06-14 11:10 | Outpatient (BNVA) | payer MEDICARE, SELFPAY | PROVIDERS: PCP Family Medicine; Visit Provider Surgery | DX: L97.215 Non-pressure chronic ulcer of right calf with muscle involvement without evidence of necrosis (principal); A49.02 Methicillin resistant Staphylococcus aureus infection, unspecified site | CPT/HCPCS: 99214 ==

== ENCOUNTER → 2024-06-28 13:07 | Outpatient (BNVA) | payer MEDICARE, SELFPAY | PROVIDERS: PCP Family Medicine; Visit Provider Nurse Practitioner Family | DX: L30.0 Nummular dermatitis (principal); L57.8 Other skin changes due to chronic exposure to nonionizing radiation; L81.4 Other melanin hyperpigmentation; L57.0 Actinic keratosis | CPT/HCPCS: 17000; 99214 ==

== ENCOUNTER → 2024-07-07 08:57 | Outpatient (BNVA) | payer MEDICARE, SELFPAY | PROVIDERS: PCP Family Medicine; Visit Provider Family Medicine | DX: I10 Essential (primary) hypertension (principal); E04.9 Nontoxic goiter, unspecified; M10.9 Gout, unspecified; M19.90 Unspecified osteoarthritis, unspecified site; E03.9 Hypothyroidism, unspecified; R03.0 Elevated blood-pressure reading, without diagnosis of hypertension | CPT/HCPCS: 80053; 80061; 82306; 82607; 84443; 84550 ==

== ENCOUNTER → 2025-01-09 08:18 | Outpatient (BNVA) | payer MEDICARE, SELFPAY | PROVIDERS: PCP Family Medicine; Visit Provider Dermatology | DX: L90.5 Scar conditions and fibrosis of skin (principal); L30.0 Nummular dermatitis | CPT/HCPCS: 99213 ==

== ENCOUNTER → 2025-02-07 13:44 | Outpatient (BNVA) | payer MEDICARE, SELFPAY | PROVIDERS: PCP Family Medicine; Visit Provider Family Medicine | DX: F41.9 Anxiety disorder, unspecified (principal); I10 Essential (primary) hypertension; R73.9 Hyperglycemia, unspecified; R39.15 Urgency of urination | CPT/HCPCS: 80053; 80061; 81000; 83036 ==